=== PATIENT | female | born 1975 | race Caucasian/White ===

== ENCOUNTER 2022-11-18 10:22 | Outpatient (OUT) | payer BC, SELFPAY ==
--- NOTE | 2022-11-18 10:28 | US_ITS ---
[address] [address] Patient Name: XIMENA MENDEZ MRN: [id number] date: 1975 Sex: F Assigned Patient Location: US Current Patient Location: US Accession/Order Number: [id number] Exam Date: 11/18/2022 10:30 Report Date: 11/18/2022 13:04 At the request of: NON-STAFF PHYSICIAN Procedure: US pelvis transvaginal EXAMINATION: US pelvis transvaginal HISTORY: Fibroid uterus COMPARISON: Ultrasound pelvis 10/30/2020 TECHNIQUE: Transabdominal and/or transvaginal sonographic examination was performed as indicated by examination type. FINDINGS: UTERUS: Contains a 4.5 x 4.0 x 3.8 cm heterogeneous mass within the right anterior myometrium favoring a leiomyoma. A second heterogeneous mass is present within the right posterior myometrium, 3.4 x 3.1 x 3.0 cm, also favoring a leiomyoma. Uterus size: 10.1 x 7.7 x 7.5 cm ENDOMETRIUM: Slightly thickened, but homogeneous. Endometrial thickness: 16 mm RIGHT OVARY: Not seen. No suspicious adnexal findings. LEFT OVARY: Normal size and appearance. Duplex Doppler demonstrates normal waveform and flow; resistive index 0.5. Ovary size: 2.8 x 1.9 x 3.3 cm CUL-DE-SAC: Unremarkable. No significant free fluid. BLADDER: Unremarkable. OTHER: None. US/US pelvis transvaginal IMPRESSION: 1. Grossly stable prominent masses within right uterine myometrium favoring leiomyomas. 2. Mild thickening of the endometrium, but otherwise normal echogenicity. Correlate with patient's stage in her menstrual cycle. Electronically authenticated by: AYAN CHURCH Date: 11/18/2022 13:04
== END 2022-11-18 10:23 | disposition home or self-care (01) ==
PROVIDERS: PCP Family Medicine
DX: D25.9 Leiomyoma of uterus, unspecified (principal); R93.89 Abnormal findings on diagnostic imaging of other specified body structures
CPT/HCPCS: 76830

== ENCOUNTER 2023-01-13 10:10 | Outpatient (OUT) | payer BC, SELFPAY ==
--- NOTE | 2023-01-13 10:17 | MM_ITS ---
Patient: XIMENA MENDEZ Exam Date: 01/13/2023 : 1975 Gender:F Ordering : Non-Staff Physician Admission #: [id number] Family : DR Magy Grider M.D. Order #: [id number] CLICK HERE TO VIEW EXAM RADIOLOGY REPORT PROCEDURE: MM TOMOSYNTHESIS SCREENING BI COMPARISON: MG MAMM SCREEN 3D ARELIS CAD, 01/09/2022. MG MAMM SCREEN 3D ARELIS CAD, 11/24/2020. INDICATIONS: Screening Calculator Name NCI Breast Cancer Risk Assessment Tool 5 Year Breast Cancer Risk 0.60% Lifetime Breast Cancer Risk 6.80% Personal Breast Cancer No Personal Ovarian Cancer No Treatments None Family Cancers Mother with pancreatic cancer at age 66; Grandmother-maternal with colon cancer at age 79. LOCATION: [facility] BREAST COMPOSITION: Scattered areas fibroglandular density. FINDINGS: DIAGNOSTIC CATEGORY 2--BENIGN FINDING. NO CHANGE FROM COMPARISON. RIGHT BREAST: No significant suspicious finding. LEFT BREAST: No significant suspicious finding. RECOMMENDATIONS: ROUTINE MAMMOGRAM AND CLINICAL EVALUATION IN 12 MONTHS. PLEASE NOTE: A NORMAL MAMMOGRAM DOES NOT EXCLUDE THE POSSIBILITY OF BREAST CANCER. A CLINICALLY SUSPICIOUS PALPABLE LUMP SHOULD BE BIOPSIED. Dictated by: Ravindra Olmos MD on 01/13/2023 at 14:36 Approved by: Ravindra Olmos MD on 01/13/2023 at 14:37
== END 2023-01-13 10:11 | disposition home or self-care (01) ==
PROVIDERS: PCP Family Medicine
DX: Z12.31 Encounter for screening mammogram for malignant neoplasm of breast (principal); Z80.0 Family history of malignant neoplasm of digestive organs
CPT/HCPCS: 77063; 77067

== ENCOUNTER 2023-04-14 19:10 | Emergency (ER) | payer BC, SELFPAY ==
[2023-04-14 19:12] VITALS: BP 160/69; PULSE 92; RESP 18; TEMP 37.1; O2SAT 100
--- NOTE | 2023-04-14 19:29 | ED_ITS ---
HPI - Female Genitourinary General Chief complaint: Urogenital-Female Stated complaint: UTI Time Seen by Provider: 04/14/23 19:11 Source: patient Mode of arrival: walk-in Limitations: no limitations History of Present Illness HPI Narrative: Patient is a 47-year-old female with a history of type 1 diabetes who presents to the emergency department for dysuria and urinary urgency that began today. She states since being diagnosed with type 1 diabetes 2 years ago, she has had 3 UTIs. This was not an issue for her before diagnosis. She has had no fevers, chills, nausea, vomiting, flank or back pain. No medications taken prior to arrival. She is not concerned for . Blood sugars have been running mildly low today as she was at work all day but she states she ate schedules on the way into the ER with improvement. Related Data Home Medications Medication Instructions Recorded Confirmed galcanezumab-gnlm 120 mg/mL mg subcut 04/14/23 subcutaneous pen injector (Emgality Pen) insulin aspart U-100 100 unit/mL 04/14/23 subcutaneous solution (Novolog U-100 Insulin aspart) rosuvastatin 10 mg tablet mg 04/14/23 semaglutide 1 mg/dose (4 mg/3 mL) mg subcut 04/14/23 subcutaneous pen injector (Ozempic) Previous Rx's Medication Instructions Recorded ciprofloxacin HCl 500 mg tablet 500 mg PO BID #10 tabs 04/14/23 (Cipro) fluconazole 150 mg tablet 150 mg PO Q5D #2 tabs 04/14/23 ondansetron 4 mg disintegrating 4 mg PO Q6H PRN nausea and 04/14/23 tablet vomiting #12 tabs phenazopyridine 200 mg tablet 200 mg PO Q8H 2 days #6 tabs 04/14/23 (Pyridium) Allergies Allergy/AdvReac Type Severity Reaction Status Date / Time sulfamethoxazole Allergy Verified 04/14/23 19:16 [From Bactrim] trimethoprim [From Bactrim] Allergy Verified 04/14/23 19:16 Review of Systems ROS Constitutional Denies: fever or chills Ears, nose, mouth, and throat Denies: throat pain or nasal congestion Cardiovascular Denies: chest pain Respiratory Denies: shortness of breath Gastrointestinal Denies: abdominal pain, nausea or vomiting PFSH PFSH Social History Smoking status: Never smoker Exam Constitutional Vital Signs, click to edit/add: Last Vital Signs Temp 98.8 F 04/14/23 19:12 Pulse 92 H 04/14/23 19:12 Resp 18 04/14/23 19:12 BP 160/69 H 04/14/23 19:12 Pulse Ox 100 04/14/23 19:12 O2 Del Method Room Air 04/14/23 19:12 Course Vital Signs Vital signs: Vital Signs Temperature 98.8 F 04/14/23 19:12 Pulse Rate 92 H 04/14/23 19:12 Respiratory Rate 18 04/14/23 19:12 Blood Pressure 160/69 H 04/14/23 19:12 Pulse Oximetry 100 04/14/23 19:12 Oxygen Delivery Method Room Air 04/14/23 19:12 Temperature 98.8 F 04/14/23 19:12 Pulse Rate 92 H 04/14/23 19:12 Respiratory Rate 18 04/14/23 19:12 Blood Pressure 160/69 H 04/14/23 19:12 Pulse Oximetry 100 04/14/23 19:12 Oxygen Delivery Method Room Air 04/14/23 19:12 MDM - Female Genitourinary MDM Narrative Medical decision making narrative: Patient with evidence of mild UTI, she is a type I diabetic so she will be treated with Cipro, Pyridium for symptoms and Zofran as needed. Follow-up with PCP, increase fluids and return to the ER if symptoms change or worsen Medical Records Attestation: I reviewed the patient's medical records. Lab Data Attestation: I reviewed the patient's lab results. Labs: Lab Results 04/14/23 Range/Units 19:25 Urine Color Lt. yellow (YELLOW) Urine Clarity Clear (CLEAR) Urine pH 7.0 (5.0-9.0) Ur Specific [place] <=1.005 A (1.005-1.025) Urine Protein Negative (NEG/TRACE) mg/dL Urine Glucose (UA) Negative (NEGATIVE) mg/dL Urine Ketones Negative (NEGATIVE) mg/dL Urine Occult Blood Moderate A (NEGATIVE) Urine Nitrite Negative (NEGATIVE) Urine Bilirubin Negative (NEGATIVE) Urine Urobilinogen 0.2 (0.2-1.0) EU/dL Ur Leukocyte Esterase Moderate A (NEGATIVE) Urine RBC 0-2 (0-2) #/HPF Urine WBC 2-5 A (NONE SEEN) #/HPF Ur Squamous Epith Cells None seen (NONE/RARE) #/LPF Urine Crystals None seen (None Seen) #/HPF Urine Bacteria None seen (NONE SEEN) #/HPF Urine Casts None seen (NONE SEEN) #/LPF Urine Mucus None seen (NONE SEEN) Discharge Plan Discharge Chief Complaint: Urogenital-Female Clinical Impression: Urinary tract infection Patient Disposition: Home, Self-Care Time of Disposition Decision: 19:52 Condition: Good Prescriptions / Home Meds: New phenazopyridine [Pyridium] 200 mg tablet 200 mg PO Q8H 2 Days Qty: 6 0RF ciprofloxacin HCl [Cipro] 500 mg tablet 500 mg PO BID Qty: 10 0RF ondansetron 4 mg tablet,disintegrating 4 mg PO Q6H PRN (Reason: nausea and vomiting) Qty: 12 0RF fluconazole 150 mg tablet 150 mg PO Q5D Qty: 2 0RF Rx Instructions: 1 tab at the beginning and 1 tab at the end of the course of antibiotics No Action insulin aspart U-100 [Novolog U-100 Insulin aspart] 100 unit/mL solution rosuvastatin 10 mg tablet Emgality Pen 120 mg/mL pen injector SUBCUT Ozempic 1 mg/dose (4 mg/3 mL) pen injector SUBCUT Instructions: Urinary Tract Infection in Women (ED) Stand Alone Forms: Portal Instructions Referrals: Magy Grider MD [Primary Care Provider] - 1 week Discharge Date/Time: 04/14/23 20:03
[2023-04-14 19:38] LABS: Bilirubin Urine NEGATIVE (NEGATIVE); Blood Urine MODERATE (NEGATIVE); Clarity Urine CLEAR (CLEAR); Color Urine LT. YELLOW (YELLOW); Glucose Urine UA NEGATIVE (NEGATIVE); Ketones Urine NEGATIVE (NEGATIVE); Leukocyte Esterase Urine MODERATE (NEGATIVE); Nitrite Urine NEGATIVE (NEGATIVE); Protein Urine NEGATIVE (NEG/TRACE); Specific Gravity Urine <=1.005 (1.005-1.025); Urobilinogen Urine 0.2 EU/dL (0.2-1.0)
[2023-04-14 19:43] LABS: Urine Microscopic Indicated YES
[2023-04-14 19:47] LABS: Bacteria Urine NONE SEEN #/HPF (NONE SEEN); Cast Seen? NONE SEEN #/LPF (NONE SEEN); Crystals Seen? None Seen #/HPF (None Seen); Mucus Urine NONE SEEN (NONE SEEN); RBC Urine 0-2 #/HPF (0-2); Squamous Epithelial Cell Urine NONE SEEN #/LPF (NONE/RARE)
== END 2023-04-14 20:03 | disposition home or self-care (01) ==
PROVIDERS: Physician Assistant; Emergency Provider Emergency Medicine; PCP Family Medicine
DX: N39.0 Urinary tract infection, site not specified (principal); E10.9 Type 1 diabetes mellitus without complications; Z87.440 Personal history of urinary (tract) infections; Z79.899 Other long term (current) drug therapy; Z79.4 Long term (current) use of insulin
CPT/HCPCS: 81001; 99283

== ENCOUNTER 2024-02-05 10:22 | Outpatient (OUT) | payer BC, SELFPAY ==
--- NOTE | 2024-02-05 10:29 | MM_ITS ---
Patient Name: XIMENA MENDEZ MR#: [id number] : 1975 Exam Date: 02/05/2024 Ordering Doctor: DR Magy Grider M.D. RADIOLOGY REPORT PROCEDURE: MM TOMOSYNTHESIS SCREENING BI COMPARISON: MM TOMOSYNTHESIS SCREENING BI, 01/13/2023. MG MAMM SCREEN 3D ARELIS CAD, 01/09/2022. MG MAMM SCREEN 3D ARELIS CAD, 11/24/2020. MG MAMM SCREEN ARELIS W CAD, 11/05/2017. INDICATIONS: Screening Calculator Name NCI Breast Cancer Risk Assessment Tool 5 Year Breast Cancer Risk 0.70% Lifetime Breast Cancer Risk 6.70% Personal Breast Cancer No Personal Ovarian Cancer No Treatments None Family Cancers Mother with pancreatic cancer at age 66; Grandmother-maternal with colon cancer at age 79. LOCATION: [facility] BREAST COMPOSITION: There are scattered areas of fibroglandular density. FINDINGS: DIAGNOSTIC CATEGORY 2--BENIGN FINDING: RIGHT BREAST: No significant suspicious finding. LEFT BREAST: No significant suspicious finding. Stable stranding/scarring posterior upper-outer quadrant. No significant change has occurred. RECOMMENDATIONS: ROUTINE MAMMOGRAM AND CLINICAL EVALUATION IN 12 MONTHS. PLEASE NOTE: A NORMAL MAMMOGRAM DOES NOT EXCLUDE THE POSSIBILITY OF BREAST CANCER. A CLINICALLY SUSPICIOUS PALPABLE LUMP SHOULD BE BIOPSIED. Dictated by: Diego Marin M.D. on 02/06/2024 at 08:20 Approved by: Diego Marin M.D. on 02/06/2024 at 09:28
--- OUTSIDE RECORDS SUMMARY | 2024-02-05 10:35 | XMS_ITS | CCD ---
Author Organization [facility] Care Team Providers Care Gear Room Keeper Name Role Phone Lisa Talavera Unavailable Mapus, Tondra Unavailable Jose Lernern Unavailable RADHA, DR MARSHALL Admitting Unavailable RADHA, DR MARSHALL Attending Unavailable JOSE GUADALUPE, DR MAGY Schmitt Primary Care Unavailable RADHA, DR MARSHALL Consulting Unavailable CARMICHAELS, DR ROBBIN Tamez Consulting Unavailable Magy Shi Unavailable Delphine Garcia Unavailable MD Magy Shi Primary Care Provider Mapus, DRAWER IN HAND Tondra K Attending Provider VIDAL Garcia-Ely Akers Attending Provider Mapus, DRAWER IN HAND Tondra K Attending Provider MD Magy Shi Primary Care Provider Mapus, DRAWER IN HAND Tondra K Attending Provider MD Magy Shi Primary Care Provider Mapus, Tondra K Admitting Unavailable Mapus, Tondra K Attending Unavailable Magy Shi Primary Care Unavailable Radha Delphine Admitting Unavailable Delphine Garcia Attending Unavailable Magy Shi Primary Care Unavailable Ravi Sher Admitting Unavailab le Ravi Sher Attending Unavailab le Magy Shi Primary Care Unavailable Mapus, Tondra K Admitting Unavailable Mapus, Tondra K Attending Unavailable Magy Shi Primary Care Unavailable Mapus, DRAWER IN HAND Tondra K Attending Provider MD Magy Shi Primary Care Provider CALIN LOPEZ Attending Unavailable KATIE ROBLEDO Referring Unavailable MAGY SHI Primary Care Unavailable Allergies Allergy Classification Reported Allergen(s) Allergy Type Date of Onset Reaction(s) Facility (20 sources) Sulfamethoxazole / Trimethoprim Drug Allergy Unknown [facility] [employer] Other (1 source) Sulfamethoxazole / Trimethoprim Drug Allergy [facility] Repository (5 sources) Allergies Reconciled Propensity to adverse reactions [facility] [employer] Other (5 sources) Sulfamethoxazole; Translations: [sulfamethoxazole] Drug Allergy 03-17-20 Unknown Reaction [facility] (5 sources) Trimethoprim; Translations: [trimethoprim] Drug Allergy 03-17-20 Unknown Reaction [facility] (1 source) Sulfamethoxazole / Trimethoprim; Translations: [SULFAMETHOXAZOLE-T RIMETHOPRIM] Drug Allergy 01-27-20 [facility] Repository Medications Current Medications Medication Drug Class(es) Dates Sig (Normalized) Sig (Original) 3 ML semaglutide 1.34 MG/ML Pen Injector [Ozempic] (17 sources) Start: 01-24-2023 inject 1 mg by subcutaneous injection every week, then inject 2 mg by subcutaneous injection once Ozempic (1 MG/DOSE) 4 MG/3ML as directed Subcutaneous Once weekly for [address] Please dispense in place of Ozempic 2mg shortage. Pt may resume Ozempic 2mg once available Dec, Active Start: 11-01-2021 inject 1 mg by subcu taneous injection every week Ozempic (1 MG/DOSE) 4 MG/3ML 1mg Subcutaneous once weekly for 90 day(s) Oct, Active inject 1 mg by subcu taneous injection every week inject 1 mg by subcu taneous injection every week Ozempic (1 MG/DOSE) 4 MG/3ML 1mg Subcutaneous once weekly for 90 day(s) Active 3 ML semaglutide 2.68 MG/ML Pen Injector [Ozempic] (6 sources) inject 2 mg by subcu taneous injection every week Ozempic (2 MG/DOSE) 8 MG/3ML 2mg Subcutaneous once weekly for 84 days Active inject 2 mg by subcutaneous inje ction every week blood-glucose sensor (Dexcom G7 Sensor) (3 sources) Start: 06-25-2023 blood-glucose sensor (Dexcom G7 Sensor) Active .Route June 24, 2023 11:00pm Start: 06-25-2023 blood-glucose sensor (Dexcom G7 Sensor) Active .Route June 25, 2023 12:00am Start: 06-25-2023 blood-glucose sensor (Dexcom G7 Sensor) Active .ROUTE June 25, 2023 12:00am 12 hr buPROPion hydrochloride 100 mg extended release oral tablet (6 sources) Aminoketone take 2 tablets by mouth in the morning, then take 1 tablet by mouth in the evening buPROPion HCl ER (SR) 100 MG 2 tabs am and 1 pm Orally twice for 30 days Active buPROPion HCl ER (SR) 100 MG 1 tablet twice daily Orally twice for 30 day(s) Active ciprofloxacin 500 mg oral tablet (1 source) Quinolone Antimicrobial Start: 06-26-2022 take 1 tablet by mouth every twelve hours Cipro 500 MG 1 tablet Orally every 12 hrs for 5 day(s) May, Active Dexcom 7 (2 sources) Start: 03-17-2023 Dexcom 7 as directed sq change every 10 days for 90 days pt has tandem control iq insulin pump must have updated dexcom g7 sensors with white line on green side of box Feb, Active Dexcom G6 Sensor - (20 sources) Start: 12-27-2020 Dexcom G6 Sensor - as directed SQ change q 10 days for 90 day(s) Nov, Active Dexcom G6 Sensor - USE DIRECTED AND CHANGE EVERY 10 DAYS for 90 Active Dexcom G6 Sensor - as directed SQ change q 10 days for 90 day(s) Active Dexcom G6 Transmitter - (20 sources) Start: 12-27-2020 Dexcom G6 Arzola smitter - as directed SQ change Q 3 MO for 90 day(s) Nov, Active Dexcom G6 Transm itter - as directed SQ change Q 3 MO for 90 day(s) Active 1 ml erenumab-aooe 70 mg/ml auto-injector (13 sources) inject 70 mg by subcutaneous injection every month Aimovig 70 MG/ML as directed Subcutaneous monthly Active fluconazole 150 mg oral tablet (1 source) Azole Antifungal Start: 06-27-19 Diflucan 150 MG 1 tablet Orally once for 2 days Take 1 tablet at the onset of symptoms of a vaginal yeast infection, take the second tablet in 3 days. May, Active 1.5 ml fremanezumab-vfrm 150 mg/ml prefilled syringe (18 sources) inject 1.5 mL by subcutaneous injection every month Ajovy 225 MG/1.5ML 1.5 ml Subcutaneous once monthly migraines Active Ajovy 225 MG/1.5 ML 1.5 ml Subcutaneous Active 1 ml galcanezumab-gnlm 120 mg/ml auto-injector (12 sources) Start: 06-25-2023 inject 120 mg by subcutaneous injection every month Galcanezumab-Gnlm (Emgality Pen) 120 mg/mL pen injector Active 120 MG SUBCUT every month June 24, 2023 11:00pm Emgality 120 MG/ ML as directed Subcutaneous Active 0.2 ml glucagon 5 mg/ml auto-injector (5 sources) Antihypoglycemic Agent Start: 06-25-2023 Glucago n (Gvoke Hypopen 1-Pack) 1 mg/0.2 mL auto-injector Active 1 MG SUBCUT June 24, 2023 11:00pm Start: 03-17-2023 Gvoke HypoPen 2-Pack 1 MG/0.2ML as directed Subcutaneous prn hypoglycemia may repeat in 15 minutes for 1 days Feb, Active Insulin Aspart U-100 (Novolog U-100 Insulin Aspart) 100 unit/mL solution (3 sources) Start: 06-25-2023 inject 80 [IU] by subcutaneous injection once daily Insulin Aspart U-100 (Novolog U-100 Insulin Aspart) 100 unit/mL solution Active 0 CNTSUBQINF .COMPLEX June 24, 2023 11:00pm INJECT 80 UNITS SUBCUTANEOUSLY DAILY VIA INSULIN PUMP; Start: 06-25-2023 inject 80 [IU] by gresham bcutaneous injection once daily Insulin Aspart U-100 (Novolog U-100 Insulin Aspart) 100 unit/mL solution Active 0 CNTSUBQINF .COMPLEX June 25, 2023 12:00am INJECT 80 UNITS SUBCUTANEOUSLY DAILY VIA INSULIN PUMP; insulin aspart, human 100 unt/ml injectable solution (20 sources) Insulin Analog Start: 02-27-2021 inject 80 [IU] by subcutaneous injection once daily NovoLOG 100 UNIT/ML 80 units via insulin pump Subcutaneous daily for 90 days Jan, Active Start: 01-29-2021 inject 60 [IU] by gresham bcutaneous injection once daily Fiasp 100 UNIT/ML 60 units/day insulin pump Subcutaneous qd for 90 day(s) Jan, Not-Taking Start: 12-27-2020 Fiasp FlexTouc h 100 UNIT/ML ICR 1:15 ac tid. corrective scale 1:50 ac tid; hs if >200 half dose Subcutaneous qid (expect up to 30 units/day) Nov, Active inject 80 [IU] by gresham bcutaneous injection once daily NovoLOG 100 UNIT/ML INJECT 80 UNITS SUBCUTANEOUSLY DAILY VIA INSULIN PUMP for 90 Active Insulin Aspart A ctive 3 ml insulin degludec 100 unt/ml pen injector (20 sources) Insulin Analog Start: 12-18-2020 inject 16 [IU] by subcutaneous injection once daily in the morning Tresiba FlexTouch 100 UNIT/ML 16 units Subcutaneous qam for 90 day(s) (titrate up to 30 units/day Nov, Active inject 21 [IU] by gresham bcutaneous injection once daily in the morning Tresiba FlexTouch 100 UNIT/ML 21 units Subcutaneous qam (titrate up to 30 units/day PRN if insulin pump fails Active Insulin Degludec (Tresiba Flextouch U-100) 100 unit/mL (3 mL) insulin pen (5 sources) Start: 10-29-2023 inject 19 [IU] by subcutaneous injection once daily in the morning Insulin Degludec (Tresiba Flextouch U-100) 100 unit/mL (3 mL) insulin pen Active 0 SUBCUT .COMPLEX October 29, 2023 10:27am If off insulin pump. 19 units Subcutaneous qam. Must wait 24 hours after last dose before restarting insulin pump. Start: 10-29-2023 inject 19 [IU] by gresham bcutaneous injection once daily in the morning Insulin Degludec (Tresiba Flextouch U-100) 100 unit/mL (3 mL) insulin pen Active 0 SUBCUT .COMPLEX October 29, 2023 11:27am If off insulin pump. 19 units Subcutaneous qam. Must wait 24 hours after last dose before restarting insulin pump. Start: 06-25-2023 End: 10-29-2023 Insulin Degludec (Tresiba Flextouch U-100) 100 unit/mL (3 mL) insulin pen Discontinued 0 SUBCUT .COMPLEX June 24, 2023 11:00pm October 29, 2023 10:29am 21 units Subcutaneous qam;(titrate up to 30 units/day PRN if insulin pump fails; Start: 06-25-2023 End: 10-29-2023 Insulin Degludec (Tresiba Flextouch U-100) 100 unit/mL (3 mL) insulin pen Discontinued 0 SUBCUT .COMPLEX June 25, 2023 12:00am October 29, 2023 11:29am 21 units Subcutaneous qam;(titrate up to 30 units/day PRN if insulin pump fails; Start: 06-25-2023 Insulin Deglud ec (Tresiba Flextouch U-100) 100 unit/mL (3 mL) insulin pen Active 0 SUBCUT .COMPLEX June 25, 2023 12:00am 21 units Subcutaneous qam;(titrate up to 30 units/day PRN if insulin pump fails; Keto-Diastix - (20 sources) Start: 11-14-2021 Keto-Diastix - as directed In Vitro prn glucose >300 for 30 day(s) Oct, Active Keto-Diastix - a s directed In Vitro prn glucose >300 for 30 days Active Keto-Diastix - a s directed In Vitro prn glucose >300 for 30 day(s) Active metFORMIN hydrochloride 500 mg oral tablet (20 sources) Biguanide take 1 tablet by mouth every twelve hours metFORMIN HCl 500 MG 1 tablet with a meal Orally bid for 90 days Active ozempic (1 mg/dose) 4 mg/3ml solution pen-injector (1 source) Start: 01-24-2023 inject 1 mg by subcutaneous injection every week, then inject 2 mg by subcutaneous injection once Ozempic (1 MG/DOSE) 4 MG/3ML as directed Subcutaneous Once weekly for 84 days Please dispense in place of Ozempic 2mg shortage. Pt may resume Ozempic 2mg once available Dec, Active ozempic (2 mg/dose) 8 mg/3ml solution pen-injector (5 sources) inject 2 mg by subcutaneous injection every week Ozempic (2 MG/DOSE) 8 MG/3ML 2mg Subcutaneous once weekly Active inject 2 mg by subcu taneous injection every week Ozempic (2 MG/DOSE) 8 MG/3ML 2mg Subcutaneous once weekly for 84 days Active pen needle, diabetic (BD Ultra-Fine Anabel Pen Needle) (3 sources) Start: 06-25-2023 pen needle, di abetic (BD Ultra-Fine Anabel Pen Needle) Active .Route June 24, 2023 11:00pm Start: 06-25-2023 pen needle, di abetic (BD Ultra-Fine Anabel Pen Needle) Active .Route June 25, 2023 12:00am Start: 06-25-2023 pen needle, di abetic (BD Ultra-Fine Anabel Pen Needle) Active .ROUTE June 25, 2023 12:00am phenazopyridine hydrochloride 200 mg oral tablet (1 source) Start: 06-26-2022 take 1 tablet by mouth every eight hours Pyridium 200 MG 1 tablet after meals Orally Three times a day for 2 day(s) May, Active rosuvastatin calcium 10 mg oral tablet (20 sources) HMG-CoA Reductase Inhibitor Start: 01-12-2024 Rosuvastatin Active 0 .ROUTE .COMPLEX 90 January 12, 2024 6:25am TAKE 1 TABLET ONCE DAILY Start: 06-25-2023 End: 01-12-2024 take 10 mg by mouth once daily Rosuvastatin Discontinu ed 10 MG PO Daily June 24, 2023 11:00pm January 12, 2024 6:25am Rosuvastatin Ernie cium 10 MG TAKE 1 TABLET ONCE DAILY for 90 Active 0.25 mg, 0.5 mg dose 1.5 ml semaglutide 1.34 mg/ml pen injector (20 sources) Start: 07-31-2021 Ozempic (0.25 or 0.5 MG/DOSE) 2 MG/1.5ML 0.5 mg Subcutaneous weekly for 90 days Dose as of 07/31/2021 is 0.25 mg subcu weekly July, Active Start: 06-28-2021 Ozempic (0.25 or 0.5 MG/DOSE) 2 MG/1.5ML 0.5 mg Subcutaneous weekly for 90 days May, Not-Taking Ozempic (0.25 or 0.5 MG/DOSE) 2 MG/1.5ML 1 mg Subcutaneous weekly for 90 days Not-Taking Semaglutide (Ozempic) 2 mg/dose (8 mg/3 mL) pen injector (6 sources) Start: 12-09-2023 Semaglutide (O zempic) 2 mg/dose (8 mg/3 mL) pen injector Active 0 .ROUTE .COMPLEX December 09, 2023 6:14am INJECT 2MG SUBCUTANEOUSLY WEEKLY (EVERY 7 DAYS) Start: 09-23-2023 End: 12-09-2023 Semaglutide (Ozempic) 2 mg/d ose (8 mg/3 mL) pen injector Discontinued 0 .ROUTE .COMPLEX September 23, 2023 5:57am December 09, 2023 6:14am INJECT 2MG SUBCUTANEOUSLY WEEKLY (EVERY 7 DAYS) Start: 09-23-2023 Semaglutide (O zempic) 2 mg/dose (8 mg/3 mL) pen injector Active 0 .ROUTE .COMPLEX September 23, 2023 6:57am INJECT 2MG SUBCUTANEOUSLY WEEKLY (EVERY 7 DAYS) Start: 06-25-2023 End: 09-23-2023 inject 2 mg by subcutaneous injection every week Semaglutide (Ozempic) 2 mg/dose (8 mg/3 mL) pen injector Discontinued 2 MG SUBCUT Once a week June 24, 2023 11:00pm September 23, 2023 5:57am Start: 06-25-2023 End: 09-23-2023 inject 2 mg by subcutaneous injection every week Semaglutide (Ozempic) 2 mg/dose (8 mg/3 mL) pen injector Discontinued 2 MG SUBCUT Once a week June 25, 2023 12:00am September 23, 2023 6:57am Start: 06-25-2023 inject 2 mg by subcu taneous injection every week Semaglutide (Ozempic) 2 mg/dose (8 mg/3 mL) pen injector Active 2 MG SUBCUT Once a week June 25, 2023 12:00am urine glucose-ketones test (Keto-Diastix) (3 sources) Start: 06-25-2023 urine glucose- ketones test (Keto-Diastix) Active .Route June 24, 2023 11:00pm Start: 06-25-2023 urine glucose- ketones test (Keto-Diastix) Active .Route June 25, 2023 12:00am Start: 06-25-2023 urine glucose- ketones test (Keto-Diastix) Active .ROUTE June 25, 2023 12:00am Completed/Discontinued Medications Medication Drug Class(es) Dates Sig (Normalized) Sig (Original) Accu-Chek Sandra Plus - (20 sources) Accu-Chek Sandra Plus - as directed In Vitro Not-Taking Accu-Chek Sandra Plus - as directed In Vitro Active Accu-Chek Sandra Plus w/Devic e (20 sources) Accu-Chek Sandra Plus w/Device as directed Not-Taking Accu-Chek Sandra Plus w/Device as directed Active cephalexin 750 mg oral capsule (13 sources) Cephalosporin Antibacterial Cephalexin 750 MG as directed Orally Not-Taking drospirenone / Ethinyl Estradiol (13 sources) Progestin, Estrogen Calli 28 No t-Taking Ketorolac (20 sources) Nonsteroidal Anti-inflammatory Drug, Cyclooxygenase Inhibitor Start: 04-16-2017 Toradol per 15 mg Mar, 30 mg Start: 08-14-2015 Toradol per 15 mg July, 60 mg methylPREDNISolone (20 sources) Corticosteroid Start: 03-26-2014 Depo-Medrol 40 mg Feb, 60 mg terconazole 4 mg/ml vaginal cream (13 sources) Azole Antifungal Terconazole 0.4 % 1 applicatorful at bedtime Vaginal Once a day Not-Taking Triamcinolone (20 sources) Corticosteroid Start: 04-16-2017 KENALOG - 10 m g Mar, 40 mg Problems Active Problems Problem Classification Problem Date Documented Da te Episodic/Chronic Acute bronchitis (5 sources) Acute bronchitis; Translations: [Acute bronchitis, unspecified] Episodic Adjustment disorders (5 sources) Adjustment disorder with depressed mood; Translations: [Adjustment disorder with depressed mood] Chronic Administrative/social admission (14 sources) Dietary counseling and surveillance; Translations: [Patient encounter status] Onset: 12-27-2020 Resolved: 11-14-2021 Episodic Benign neoplasm of uterus (5 sources) Uterine leiomyoma; Translations: [Leiomyoma of uterus, unspecified] Episodic Chronic obstructive pulmonary disease and bronchiectasis (5 sources) Bronchitis; Translations: [Bronchitis, not specified as acute or chronic] Episodic Diabetes mellitus with complications (20 sources) Hyperglycemia due to type 2 diabetes mellitus; Translations: [Type 2 diabetes mellitus with hyperglycemia] Onset: 04-30-2023 Chronic Diabetes mellitus without complication (20 sources) Type 1 diabetes mellitus; Translations: [Type 1 diabetes mellitus without complications] Onset: 12-27-2020 Resolved: 11-28-2021 Chronic Diabetes mellitus without complication (15 sources) Insulin pump present; Translations: [Presence of insulin pump (external) (internal)] Episodic Disorders of lipid metabolism (20 sources) Hyperlipidemia; Translations: [Hyperlipidemia, unspecified] Onset: 12-27-2020 Resolved: 11-28-2021 Chronic Essential hypertension (20 sources) Essential hypertension; Translations: [Essential (primary) hypertension] Onset: 06-28-2021 Resolved: 11-28-2021 Chronic Headache; including migraine (5 sources) Menstrual migraine; Translations: [Menstrual migraine, not intractable, without status migrainosus] Chronic Immunizations and screening for infectious disease (7 sources) Encounter for immunization; Translations: [Sexually transmitted infectious disease] Onset: 01-29-2021 Resolved: 05-07-2021 Episodic Inflammatory diseases of female pelvic organs (5 sources) Acute vaginitis; Translations: [Acute vaginitis] Episodic Mood disorders (14 sources) Major depressive disorder, single episode, unspecified; Translations: [Depression] Chronic Mycoses (5 sources) Candidiasis; Translations: [Candidiasis, unspecified] Episodic Nutritional deficiencies (20 sources) Vitamin D deficiency; Translations: [Vitamin D deficiency, unspecified] Chronic Nutritional deficiencies (6 sources) Deficiency of other specified B group vitamins; Translations: [Vitamin B 12 deficiency E53.8] Onset: 12-27-2020 Resolved: 11-14-2021 Episodic Other aftercare (20 sources) Long-term current use of insulin; 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] 06-24-2023 Episodic Other aftercare (19 sources) 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; Translations: [Long-term (current) use of insulin] Onset: 12-27-2020 Resolved: 11-28-2021 Episodic Other endocrine disorders (5 sources) Hypoglycemia; Translations: [Hypoglycemia, unspecified] 06-24-2023 Chronic Other endocrine disorders (4 sources) Hypoglycemia, unspecified; Translations: [Hypoglycemia, unspecified] Chronic Other female genital disorders (5 sources) Hypertrophy of uterus; Translations: [Hypertrophy of uterus] Episodic Other female genital disorders (5 sources) Noninflammatory disorder of the vagina; Translations: [Other specified noninflammatory disorders of vagina] Episodic Other infections; including parasitic (1 source) Personal history of other infectious and parasitic diseases Episodic Other non-traumatic joint disorders (5 sources) Other specified joint disorders, right ankle and foot; Translations: [Other specified joint disorders, right ankle and foot] Episodic Other non-traumatic joint disorders (5 sources) Arthralgia of the ankle and/or foot; Translations: [Pain in right ankle and joints of right foot] Episodic Other nutritional; endocrine; and metabolic disorders (20 sources) Body mass index 30+ - obesity; Translations: [Body mass index (BMI) 30.0-30.9, adult] Chronic Other nutritional; endocrine; and metabolic disorders (20 sources) Obesity; Translations: [Obesity, unspecified] Chronic Other nutritional; endocrine; and metabolic disorders (20 sources) Obese class I; Translations: [Body mass index (BMI) 31.0-31.9, adult] Chronic Other nutritional; endocrine; and metabolic disorders (10 sources) Obesity, unspecified Onset: 06-28-2021 Resolved: 11-28-2021 Chronic Other nutritional; endocrine; and metabolic disorders (1 source) Body mass index (BMI) 31.0-31.9, adult Onset: 05-07-2021 Resolved: 05-07-2021 Chronic Other nutritional; endocrine; and metabolic disorders (4 sources) Body mass index (BMI) 30.0-30.9, adult Onset: 08-14-2021 Resolved: 11-14-2021 Chronic Other nutritional; endocrine; and metabolic disorders (3 sources) Body mass index (BMI) 29.0-29.9, adult; Translations: [BMI 29.0-29.9,adult Z68.29] Onset: 12-27-2020 Resolved: 01-29-2021 Episodic Other nutritional; endocrine; and metabolic disorders (6 sources) H/O: diabetes mellitus; Translations: [Personal history of other endocrine, nutritional and metabolic disease] Episodic Other nutritional; endocrine; and metabolic disorders (1 source) Personal history of other endocrine, nutritional and metabolic disease Episodic Other nutritional; endocrine; and metabolic disorders (1 source) Body mass index (BMI) 28.0-28.9, adult Episodic Other nutritional; endocrine; and metabolic disorders (4 sources) Overweight in adulthood with body mass index of 25 or more but less than 30; Translations: [Body mass index (BMI) 29.0-29.9, adult] 10-29-2023 Episodic Other nutritional; endocrine; and metabolic disorders (2 sources) Body mass index (BMI) 27.0-27.9, adult; Translations: [Body Mass Index 27.0-27.9, adult] 10-29-2023 Episodic Other upper respiratory infections (5 sources) Chronic sinusitis; Translations: [Chronic sinusitis, unspecified] Chronic Phlebitis; thrombophlebitis and thromboembolism (5 sources) Thromboembolism of vein; Translations: [Acute embolism and thrombosis of unspecified deep veins of left lower extremity] Episodic Poisoning by other medications and drugs (20 sources) Allergic reaction to drug; Translations: [Allergic reaction caused by a drug] Episodic Sprains and strains (5 sources) Late effect of sprain AND/OR strain without tendon injury; Translations: [Strain of muscle(s) and tendon(s) of peroneal muscle group at lower leg level, right leg, sequela] Episodic Unclassified (1 source) Dietary counseling and surveillance; Translations: [Dietary counseling and surveillance] Onset: 05-30-2022 Urinary tract infections (1 source) Urinary tract infection, site not specified Episodic Viral infection (5 sources) Papillomavirus as the cause of diseases classified elsewhere; Translations: [Human papillomavirus] Episodic Past or Other Problems Problem Classification Problem Date Documented Date Episodic/Chronic Contraceptive and procreative management (5 sources) Sterilization procedure; Translations: [Encounter for sterilization] Resolved: 08-21-2020 Episodic Genitourinary symptoms and ill-defined conditions (7 sources) Dysuria; Translations: [Genitourinary symptoms] Onset: 06-26-2022 Resolved: 08-21-2020 Episodic Other aftercare (5 sources) History and physical examination, follow-up; Translations: [Encounter for follow-up examination after completed treatment for conditions other than malignant neoplasm] Resolved: 02-16-2020 Episodic Other non-traumatic joint disorders (5 sources) Instability of joint of right ankle; Translations: [Other instability, right ankle] Resolved: 08-21-2020 Episodic Other skin disorders (5 sources) Localized swelling, mass and lump, left lower limb; Translations: [Localized swelling, mass and lump, left lower limb] Resolved: 08-21-2020 Episodic Unclassified (5 sources) Acute candidiasis of vulva and vagina; Translations: [Acute candidiasis of vulva and vagina] Resolved: 10-12-2020 Results Test Name Value Interpretation Reference Range Facility COMPREHENSIVE METABOLIC PANE [facility] 01-26-2024 Albumin [Mass/Vol] 4.0 g/dL Normal 3.2-5.3 [facility] Comment on above: Performed By: #### Ely SALCEDO, 42949-9, TSHR #### [facility] ([id number]) [address], [address] [place] [address] ALP [Catalytic activity/Vol] 66 U/L Normal 39-130 [facility] Comment on above: Performed By: #### Ely SALCEDO, 28572-8, TSHR #### [facility] ([id number]) [address], [address] [place] [address] ALT [Catalytic activity/Vol] 39 U/L High 0-31 [facility] Comment on above: Performed By: #### Ely SALCEDO, 72935-0, TSHR #### [facility] ([id number]) [address], [address] [place] [address] Anion gap [Moles/Vol] 7 mmol/L Normal 5-15 [facility] Comment on above: Performed By: #### Ely SALCEDO, 43847-1, TSHR #### [facility] ([id number]) [address], [address] [place] [address] AST [Catalytic activity/Vol] 30 U/L Normal 0-41 [facility] Comment on above: Performed By: #### Ely SALCEDO, 37074-8, TSHR #### [facility] ([id number]) [address], [address] [place] [address] Bilirubin [Mass/Vol] 0.8 mg/dL Normal 0.3-1.2 [facility] Comment on above: Performed By: #### Ely SALCEDO, 03829-1, TSHR #### [facility] ([id number]) [address], [address] [place] [address] Calcium [Mass/Vol] 8.9 mg/dL Normal 8.5-10.5 [facility] Comment on above: Performed By: #### Ely SALCEDO, 32093-2, TSHR #### [facility] ([id number]) [address], [address] [place] [address] Chloride [Moles/Vol] 108 mmol/L Normal 98-109 [facility] Comment on above: Performed By: #### Ely SALCEDO, 11675-9, TSHR #### [facility] ([id number]) [address], [address] [place] [address] CO2 [Moles/Vol] 24 mmol/L Normal 22-32 [facility] Comment on above: Performed By: #### Ely SALCEDO, 91146-7, TSHR #### [facility] ([id number]) [address], [address] [place] [address] Creatinine [Mass/Vol] 0.73 mg/dL Normal 0.40-1.00 [facility] Comment on above: Result Comment: METH OD TRACEABLE TO IDMS STANDARD Performed By: #### Ely SALCEDO, 01470-2, TSHR #### [facility] ([id number]) [address], [address] [place] [address] eGFR (CKD-EPI) NON-RACE DEPENDENT >90 Normal >59 [facility] Comment on above: Result Comment: Reported eGFR is based on the CKD-EPI 2020 equation that does not use a race coefficient. Performed By: #### Ely SALCEDO, 10651-6, TSHR #### [facility] ([id number]) [address], [address] [place] [address] Glucose [Mass/Vol] 110 mg/dL High 65-99 [facility] Comment on above: Performed By: #### Ely SALCEDO, 67966-8, TSHR #### [facility] ([id number]) [address], [address] [place] [address] Potassium [Moles/Vol] 4.3 mmol/L Normal 3.5-5.0 [facility] Comment on above: Performed By: #### Ely SALCEDO 51729-4, TSHR #### [facility] ([id number]) [address], [address] [place] [address] Protein [Mass/Vol] 5.9 g/dL Low 6.0-8.0 [facility] Comment on above: Performed By: #### Ely SALCEDO 43920-3, TSHR #### [facility] ([id number]) [address], [address] [place] [address] Sodium [Moles/Vol] 139 mmol/L Normal 134-146 [facility] Comment on above: Performed By: #### Ely SALCEDO 18597-0, TSHR #### [facility] ([id number]) [address], [address] [place] [address] Urea nitrogen [Mass/Vol] 15 mg/dL Normal 5-23 [facility] Comment on above: Performed By: #### Ely SALCEDO 97094-0, TSHR #### [facility] ([id number]) [address], [address] [place] [address] Lipid 1996 panelon 4 Cholesterol [Mass/Vol] 147 mg/dL Low 150-200 [facility] Comment on above: Performed By: #### Ely SALCEDO, 96166-1, TSHR #### [facility] ([id number]) [address], [address] [place] [address] Cholesterol in HDL [Mass/Vol] 72 mg/dL Normal >39 [facility] Comment on above: Result Comment: HDL <40 mg/dL - High Risk HDL > or = 40mg/dL- Desirable HDL >60 mg/dL - Negative Risk Performed By: #### Ely SALCEDO, 32754-1, TSHR #### [facility] ([id number]) [address], [facility] [address] [place] [address] Cholesterol in LDL [Mass/Vol] 68 mg/dL Normal <130 [facility] Comment on above: Result Comment: LDL <100 mg/dL - Desirable LDL >160 mg/dL - High Risk Performed By: #### Ely SALCEDO, 71754-5, TSHR #### [facility] ([id number]) [address], [address] [place] [address] Cholesterol in VLDL [Mass/Vol] 7 mg/dL Normal 0-30 [facility] Comment on above: Performed By: #### Ely SALCEDO, 63734-7, TSHR #### [facility] ([id number]) [address], [facility] [address] [place] [address] CHOLESTEROL:HDL 2.0 Normal 1.0-5.0 [facility] Comment on above: Performed By: #### Ely SALCEDO, 34174-9, TSHR #### [facility] ([id number]) [address] [address] [place] [address] Triglyceride [Mass/Vol] 35 mg/dL Normal 27-150 [facility] Comment on above: Performed By: #### Ely SALCEDO, 06911-2, TSHR #### [facility] ([id number]) [address] [address] [place] [address] MICROALBUMIN - ALBUMIN:CREAT ININE URINE RATIOon 01-26-2024 ALB/CREAT RATIO NOT CALCULATED Normal 0.0-30.0 [facility] Comment on above: Result Comment: Result for Albumin/Creatinine Ratio cannot be reliably calculated because urine albumin and or urine creatinine is below the detection limit of the assay. Performed By: #### M ALBU #### [facility] ([id number]) [address], [address] [address] Albumin DL <= 20 mg/L (U) [Mass/Vol] mg/dL Normal 0.0-1.9 [facility] Comment on above: Performed By: #### M ALBU #### [facility] ([id number]) [address], [address] [address] URINE CREAT 23.83 mg/dL Normal [facility] Comment on above: Performed By: #### M ALBU #### [facility] ([id number]) [address], [address] [address] TSH WITH REFLEXon 01-26-2024 TSH 0.65 uIU/mL Normal 0.49-4.67 [facility] Comment on above: Performed By: #### [place], [address]-1, TSHR #### [facility] ([id number]) [address], [address] [address] A1C HEMOGLOBINon 03-17-2023 HbA1c (Bld) [Mass fraction] 7.2 % [facility] Other Glucose - FINGER STICKon Glucose [Mass/Vol] 134 mg/dL [facility] Other HbA1c (Bld) [Mass fraction]o n 03-17-2023 A1C HEMOGLOBIN [facility] Other A1C HEMOGLOBINon 12-17-2022 HbA1c (Bld) [Mass fraction] 6.4 % [facility] Other Glucose - FINGER STICKon Glucose [Mass/Vol] 187 mg/dL [facility] Other HbA1c (Bld) [Mass fraction]o n 12-17-2022 A1C HEMOGLOBIN [facility] Other Urinalysis - AUTOMATEDon Appearance (U) clear [facility] Other Bilirubin Ql (U) Negative [facility] Other Color (U) yellow [facility] Other Glucose Ql (U) Negative [facility] Other Hemoglobin Ql (U) trace-intact [facility] Other Ketones Ql (U) Negative [facility] Other Leukocyte esterase Test strip Ql (U) large [facility] Other Nitrite Ql (U) Negative [facility] Other pH (U) 7.0 [pH] [facility] Other Protein Ql (U) Negative [facility] Other Specific gravity (U) [Rel density] 1.010 [facility] Other Urobilinogen (U) [Mass/Vol] 0.2 mg/dL [facility] Other Urinalysis - AUTOMATED [facility] Other Urine Cultureon 06-26-2022 Bacteria identified Cx Nom (U) Reason for Exam Dysuria Urine ORGANISM: Escherichia coli (O:ESCCOL) [place] Count 15,000 Aerobic JANEE Charge ([id number]) SUSCEPTIBILITY ORGANISM: O:ESCCOL ANTIBIOTIC INTERPRETATION JANEE Amikacin S <16 Amoxacillin/K Clavulanate S <8 Ampicillin S <8 Ampicillin/Sulbactam S <4 Aztreonam S <4 Cefazolin S <2 Cefepime S <2 Ceftazidime S <1 Ceftazidime/Avibactam S <4 Ceftolozane/Tazobactam S <2 Ceftriaxone S <1 Cefuroxime S <4 Ciprofloxacin S <0.25 Ertapenem S <0.5 Gentamicin S <2 Levofloxacin S <0.5 Meropenem S <1 Meropenem/Vaborbactam S <2 Nitrofurantoin S <32 Piperacillin/Tazobactam S <8 Tetracycline R >8 Tigecycline S <2 Tobramycin S <2 Trimethoprim/Sulfamethoxazo le R >2 S = SUSCEPTIBLE I = INTERMEDIATE R = RESISTANT BLANK = DATA NOT AVAILABLE, OR DRUG NOT ADVISABLE OR TESTED R* = RESISTANCE DUE TO EXTENDED SPECTRUM BETA-LACTAMASES ESBL = EXTENDED SPECTRUM BETA-LACTAMASE TFG = THYMIDINE-DEPENDENT STRAIN FIOR = BETA-LACTAMASE POSITIVE IB = INDUCIBLE BETA-LACTAMASE. APPEARS IN PLACE OF 'S' WITH SPECIES KNOWN TO POSSESS INDUCIBLE BETA-LACTAMASES. POTENTIALLY THEY MAY BECOME RESISTANT TO ALL B-LACTAM DRUGS. PERFORMED BY: [place] [address] PATHOLOGIST BRADLEY LINEBACKER CREWMEMBER LEANNE CHAN M.D. [facility] Comment on above: Performed By: #### C UU #### [facility] [address] [place] [address] Urine Culture 15,000 [facility] Other Urine Culture <16 Susceptible [facility] Other Urine Culture <8/4 Susceptible [facility] Other Urine Culture <8 Susceptible [facility] Other Urine Culture <4 Susceptible [facility] Other Urine Culture <2 Susceptible [facility] Other Urine Culture <1 Susceptible [facility] Other Urine Culture <0.25 Susceptible [facility] Other Urine Culture <0.5 Susceptible [facility] Other Urine Culture <32 Susceptible [facility] Other Urine Culture >8 Resistant [facility] Other Urine Culture >2/38 Resistant [facility] Other A1C HEMOGLOBINon 02-26-2022 HbA1c (Bld) [Mass fraction] 6.40 % [facility] Other Glucose - FINGER STICKon Glucose [Mass/Vol] 151 mg/dL [facility] Other HbA1c (Bld) [Mass fraction]o n 02-26-2022 A1C HEMOGLOBIN [facility] Other MG MAMM SCREEN 3D ARELIS CADon 01-09-2022 MG MAMM SCREEN 3D ARELIS CAD Patient: XIMENA ZAPATA Exam Date: 01/09/2022 : 1975 Gender:F Ordering : DR ROLANDO GARCIA . Admission #: [id number] Family : Order #: [id number] CLICK HERE TO VIEW EXAM kRADIOLOGY REPORT PROCEDURE: MAMMOGRAM SCREENING 3D BILATERAL CAD COMPARISON: MG MAMM SCREEN 3D ARELIS CAD, 11/24/2020. MG MAMM SCREEN ARELIS W CAD, 11/05/2017. INDICATIONS: Screening mammography Calculator Name NCI Breast Cancer Risk Assessment Tool 5 Year Breast Cancer Risk 0.60% Lifetime Breast Cancer Risk 6.90% Personal Breast Cancer No Personal Ovarian Cancer No Treatments None Family Cancers Mother with pancreatic cancer at age 66; Grandmother-maternal with colon cancer at age 79. LOCATION: [facility] BREAST COMPOSITION: Scattered areas fibroglandular density. FINDINGS: DIAGNOSTIC CATEGORY 1--NEGATIVE. NO CHANGE FROM COMPARISON ASSESSMENT. Scattered benign-appearing lymph nodes are present. RIGHT BREAST: No significant suspicious finding. LEFT BREAST: No significant suspicious finding. RECOMMENDATIONS: ROUTINE MAMMOGRAM AND CLINICAL EVALUATION IN 12 MONTHS. PLEASE NOTE: A NORMAL MAMMOGRAM DOES NOT EXCLUDE THE POSSIBILITY OF BREAST CANCER. A CLINICALLY SUSPICIOUS PALPABLE LUMP SHOULD BE BIOPSIED. Dictated by: Robbin Olmos MD on 01/09/2022 at 12:45 Approved by: Robbin Olmos MD on 01/09/2022 at 12:47 Normal [facility] A1C HEMOGLOBINon 11-14-2021 HbA1c (Bld) [Mass fraction] 6.5 % [facility] Other Glucose - FINGER STICKon Glucose [Mass/Vol] 130 mg/dL [facility] Other HbA1c (Bld) [Mass fraction]o n 11-14-2021 A1C HEMOGLOBIN [facility] Other A1C HEMOGLOBINon 08-14-2021 HbA1c (Bld) [Mass fraction] 7.1 % [facility] Other Glucose - FINGER STICKon Glucose [Mass/Vol] 196 mg/dL [facility] Other HbA1c (Bld) [Mass fraction]o n 08-14-2021 A1C HEMOGLOBIN [facility] Other A1C HEMOGLOBINon 05-07-2021 HbA1c (Bld) [Mass fraction] 6.5 % [facility] Other Glucose - FINGER STICKon Glucose [Mass/Vol] 129 mg/dL [facility] Other HbA1c (Bld) [Mass fraction]o n 05-07-2021 A1C HEMOGLOBIN [facility] Other Glucose - FINGER STICKon Glucose [Mass/Vol] 104 mg/dL [facility] Other Glucose - FINGER [facility]ICKon Glucose [Mass/Vol] 160 mg/dL [facility] Other Albumin [Mass/volume] in Bod y fluidOrdered By: Katie Robledo on 12-18-2020 Albumin (Body fld) [Mass/Vol] 3.8 g/dL 3.2-5.5 [facility] Alkaline phosphatase [Enzyma tic activity/volume] in Serum or PlasmaOrdered By: Katie Robledo on 12-18-2020 ALP [Catalytic activity/Vol] 100 U/L 32-92 [facility] Aspartate aminotransferase [ Enzymatic activity/volume] in Serum or PlasmaOrdered By: Katie Robledo on 12-18-2020 AST [Catalytic activity/Vol] 15 U/L 10-42 [facility] Bilirubin.total [Mass/volume ] in Serum or PlasmaOrdered By: Katie Robledo on 12-18-2020 Bilirubin [Mass/Vol] 0.9 mg/dL 0.3-1.2 [facility] Calcium [Mass/volume] in Ser um or PlasmaOrdered By: Katie Robledo on 12-18-2020 Calcium [Mass/Vol] 9.2 mg/dL 8.2-10.2 [facility] Carbon dioxide, total [Moles /volume] in Serum or PlasmaOrdered By: Katie Robledo on 12-18-2020 CO2 [Moles/Vol] 22.2 mmol/L 22.0-30.0 [facility] Chloride [Moles/volume] in S keisha or PlasmaOrdered By: Katie Robledo on 12-18-2020 Chloride [Moles/Vol] 102 mmol/L 95-114 [facility] Cholesterol [Mass/volume] in Serum or PlasmaOrdered By: Katie Robledo on 12-18-2020 Cholesterol [Mass/Vol] 285 mg/dL 140-200 [facility] Comment on above: Chol less than 200 m g/dl low riskChol 201-239 mg/dl borderline riskChol 240 mg/dl and greater high risk Cholesterol in LDL Calc [Mas s/Vol]Ordered By: Katie Robledo on 12-18-2020 Cholesterol in LDL [Mass/Vol] 212 mg/dL 0-100 [facility] Comment on above: LDL ATP III CLASSIFI CATIONLDL less than 100 mg/dL OptimalLDL 100-129 mg/dL Near or above optimalLDL 130-159 mg/dL Borderline highLDL 160-189 mg/dL HighLDL greater than 189 mg/dL Very high Cholesterol in VLDL Calc [Ma ss/Vol]Ordered By: Katie Robledo on 12-18-2020 Cholesterol in VLDL [Mass/Vol] 30 mg/dL [facility] Creatinine [Mass/volume] in UrineOrdered By: Katie Robledo on 12-18-2020 Creatinine (U) [Mass/Vol] 60.6 mg/dL [facility] Comment on above: No reference range e stablished Creatinine and Glomerular fi ltration rate.predicted panel (S/P/Bld)Ordered By: Katie Robledo on 12-18-2020 Creatinine [Mass/Vol] 0.61 mg/dL 0.44-1.03 [facility] Estimated glomerular filtrat ion rate (GFR) non- AmericanOrdered By: Katie Robledo on 12-18-2020 GFR/1.73 sq M.predicted among non-blacks MDRD (S/P/Bld) [Vol rate/Area] > 60 mL/Min [facility] Globulin Calc (S) [Mass/Vol] Ordered By: Katie Robledo on 12-18-2020 Globulin (S) [Mass/Vol] 2.0 g/dL [facility] Glucose [Mass/volume] in Ser um or PlasmaOrdered By: Katie Robledo on 12-18-2020 Glucose [Mass/Vol] 262 mg/dL 70-100 [facility] Comment on above: ADA recommended refe rence rangeRandom Glucose Reference Range is dependent on time and content of last meal. Glucose of more than 200 mg/dL in a nonstressed, ambulatory subject supports the diagnosis of Diabetes Mellitus. Laboratory - Chemistry and C hemistry - challengeOrdered By: Katie Robledo on 12-18-2020 Cobalamin (Vitamin B12) [Mass/Vol] 537 pg/mL 180-914 [facility] Microalbumin [Mass/volume] i n UrineOrdered By: Katie Robledo on 12-18-2020 Albumin DL <= 20 mg/L (U) [Mass/Vol] mg/dL 0.0-1.8 [facility] No Panel InformationOrdered By: Katie Robledo on 12-18-2020 C-Peptide 0.9 ng/mL 1.1-4.4 [facility] Comment on above: C-Peptide reference interval is for fasting patients.Performed at: - [id number] [place], [place] [id number] Director: Mazin Banerjee PhD, Phone: [phone] Estimated GFR () > 60 mL/Min [facility] Comment on above: GFR estimated refere nce range: According to KDOQI guidelines, <60 ml/min/1.73m2 is sufficient to diagnose a patient with chronic kidney disease. Pharmacy Creatinine Clearance (Chem N/A [facility] Potassium [Moles/volume] in Serum or PlasmaOrdered By: Katie Robledo on 12-18-2020 Potassium [Moles/Vol] 4.2 mmol/L 3.5-5.1 [facility] Protein [Mass/volume] in Ser um or PlasmaOrdered By: Katie Robledo on 12-18-2020 Protein [Mass/Vol] 5.8 g/dL 6.1-7.9 [facility] Serum glutamate decarboxylas e 65 antibody assay (units/volume)Ordered By: Katie Robledo on 12-18-2020 Glutamate decarboxylase 65 Ab Qn (S) 23.1 U/mL 0.0-5.0 [facility] Comment on above: Performed at: [facility] [address] [id number] Director: Randi De Jesus MD, Phone: [phone] Serum insulin antibody assay (units/volume)Ordered By: Katie Robledo on 12-18-2020 Insulin Ab Qn (S) <5.0 uU/mL . [facility] Comment on above: This test is also kn own as insulin autoantibody or IAA.This test was developed and its performance characteristicsdetermined by [facility]. It has not been cleared or approvedby the Food and Drug Administration.Reference Range:<5.0 Negative> or = 5.0 PositivePerformed at: [facility] - [facility] [id number] [place], [place] [id number] Director: Ryan Kerr MD, Phone: [phone] Serum or plasma alanine escobar otransferase measurement without P-5'-P (enzymatic activiOrdered By: Katie Robledo on 12-18-2020 ALT No additional P-5'-P [Catalytic activity/Vol] 25 U/L 10-60 [facility] Serum or plasma albumin/glob ulin mass ratioOrdered By: Katie Robledo on 12-18-2020 Albumin/Globulin [Mass ratio] 1.9 {ratio} [facility] Serum or plasma high density lipoprotein (HDL) cholesterol measurementOrdered By: Katie Robledo on 12-18-2020 Cholesterol in HDL [Mass/Vol] 42 mg/dL 35-85 [facility] Comment on above: HDL CHOL ATP-III CLA SSIFICATION Cardiovascular RiskHDL > or equal to 60 mg/dL LOWHDL < 40 mg/dL HIGH Serum or plasma total choles terol/high density lipoprotein (HDL) cholesterol mass ratOrdered By: Katie Robledo on 12-18-2020 Cholesterol.total/Ch olesterol in HDL [Mass ratio] 6.8 {ratio} <5.0 [facility] Sodium [Moles/volume] in Ser um or PlasmaOrdered By: Katie Robledo on 12-18-2020 Sodium [Moles/Vol] 133 mmol/L 136-146 [facility] Triglyceride [Mass/volume] i n Serum or PlasmaOrdered By: Katie Robledo on 12-18-2020 Triglyceride [Mass/Vol] 154 mg/dL 35-149 [facility] Comment on above: TRIG ATP III CLASSIF ICATIONTRIG less than 150 mg/dL NormalTRIG 150-199 mg/dL Borderline highTRIG 200-500 mg/dL High TRIG greater than 500 mg/dL Very highStandard traceable to the Center for Disease Conrtrol and Prevention (CDC) test method. Urea nitrogen [Mass/volume] in Serum or PlasmaOrdered By: Katie Robledo on 12-18-2020 Urea nitrogen [Mass/Vol] 9 mg/dL 12-21 [facility] Urine microalbumin/creatinin e mass ratioOrdered By: Katie Robledo on 12-18-2020 Albumin/Creatinine DL <= 20 mg/L (U) [Mass ratio] TNP [facility] Comment on above: Test not performed Vital Signs Date Time Vital Sign Value Performing Clinician Facility 02-04-2024 11:16-0500 Body height 165.1 cm [facility] 02-04-2024 11:16-0500 Body mass index (BMI) [Ratio] 28.7 kg/m2 [facility] 02-04-2024 11:16-0500 Body weight 78.21 kg [facility] 02-04-2024 11:16-0500 Diastolic blood pressure 69 mm[Hg] [facility] 02-04-2024 11:16-0500 Heart rate 71 /min [facility] 02-04-2024 11:16-0500 Respiratory rate 18 /min [facility] 02-04-2024 11:16-0500 SaO2% (BldA) [Mass fraction] 98 % [facility] 02-04-2024 11:16-0500 Systolic blood pressure 119 mm[Hg] [facility] 10-29-2023 10:40-0400 Body height 165.1 cm [facility] 10-29-2023 10:40-0400 Body mass index (BMI) [Ratio] 27.8 kg/m2 [facility] 10-29-2023 10:40-0400 Body weight 75.94 kg [facility] 10-29-2023 10:40-0400 Diastolic blood pressure 83 mm[Hg] [facility] 10-29-2023 10:40-0400 Heart rate 76 /min [facility] 10-29-2023 10:40-0400 Respiratory rate 16 /min [facility] 10-29-2023 10:40-0400 SaO2% (BldA) [Mass fraction] 99 % [facility] 10-29-2023 10:40-0400 Systolic blood pressure 126 mm[Hg] [facility] 06-25-2023 11:12-0400 Body height 165.1 cm MD Magy Shi Work Phone: [facility] 06-25-2023 11:12-0400 Body mass index (BMI) [Ratio] 29.2 kg/m2 MD Magy Shi Work Phone: [facility] 06-25-2023 11:12-0400 Body weight 79.83 kg MD Magy Shi Work Phone: [facility] 06-25-2023 11:12-0400 Diastolic blood pressure 72 mm[Hg] MD Magy Shi Work Phone: [facility] 06-25-2023 11:12-0400 Heart rate 67 /min MD Magy Shi Work Phone: [facility] 06-25-2023 11:12-0400 Respiratory rate 18 /min MD Magy Shi Work Phone: [facility] 06-25-2023 11:12-0400 SaO2% (BldA) [Mass fraction] 100 % MD Magy Shi Work Phone: [facility] 06-25-2023 11:12-0400 Systolic blood pressure 118 mm[Hg] MD Magy Shi Work Phone: [facility] 03-17-2023 10:45-0500 Body height 165.1 cm Tondra Mapus Other [facility] 03-17-2023 10:45-0500 Body mass index (BMI) [Ratio] 29.73 kg/m2 Tondra Mapus Other [facility] [employer] Other 03-17-2023 10:45-0500 Body weight 81.06 kg Tondra Mapus Other [facility] Other 03-17-2023 10:45-0500 Body weight 81.05 kg MD Magy Shi Work Phone: [facility] 03-17-2023 10:45-0500 Diastolic blood pressure 68 mm[Hg] Tondra Mapus Other [facility] 03-17-2023 10:45-0500 Respiratory rate 18 /min Tondra Mapus Other [facility] Other 03-17-2023 10:45-0500 SaO2% (BldA) [Mass fraction] 98 % Tondra Mapus Other [facility] Other 03-17-2023 10:45-0500 Systolic blood pressure 119 mm[Hg] Tondra Mapus Other [facility] 12-17-2022 11:15-0400 Body height 165.1 cm Tondra Mapus Other [facility] Other 12-17-2022 11:15-0400 Body mass index (BMI) [Ratio] 28.84 kg/m2 Tondra Mapus Other [facility] Other 12-17-2022 11:15-0400 Body weight 78.61 kg Tondra Mapus Other [facility] Other 12-17-2022 11:15-0400 Diastolic blood pressure 79 mm[Hg] Tondra Mapus Other [facility] Other 12-17-2022 11:15-0400 Respiratory rate 18 /min Tondra Mapus Other [facility] Other 12-17-2022 11:15-0400 SaO2% (BldA) [Mass fraction] 99 % Tondra Mapus Other [facility] Other 12-17-2022 11:15-0400 Systolic blood pressure 127 mm[Hg] Tondra Mapus Other [facility] Other 06-26-2022 13:05-0400 Body height 165.1 cm Delphine Garcia Other [facility] Other 06-26-2022 13:05-0400 Body mass index (BMI) [Ratio] 30.28 kg/m2 Delphine Garcia Other [facility] Other 06-26-2022 13:05-0400 Body temperature 97.7 [degF] Delphine Garcia Other [facility] Other 06-26-2022 13:05-0400 Body weight 82.56 kg Delphine Garcia Other [facility] Other 06-26-2022 13:05-0400 Diastolic blood pressure 83 mm[Hg] Delphine aGrcia Other [facility] Other 06-26-2022 13:05-0400 Respiratory rate 18 /min Delphine Garcia Other [facility] Other 06-26-2022 13:05-0400 SaO2% (BldA) [Mass fraction] 100 % Delphine Garcia Other [facility] Other 06-26-2022 13:05-0400 Systolic blood pressure 123 mm[Hg] Delphine Garcia Other [facility] Other 05-30-2022 08:45-0500 Body height 165.1 cm Lisa Scally Other [facility] Other 05-30-2022 08:45-0500 Body mass index (BMI) [Ratio] 30.23 kg/m2 Lisa Scally Other [facility] Other 05-30-2022 08:45-0500 Body weight 82.42 kg Lisa Scally Other [facility] Other 05-30-2022 08:45-0500 Diastolic blood pressure 83 mm[Hg] Lisa Scally Other [facility] Other 05-30-2022 08:45-0500 Respiratory rate 18 /min Lisa Scally Other [facility] Other 05-30-2022 08:45-0500 SaO2% (BldA) [Mass fraction] 100 % Lisa Scally Other [facility] Other 05-30-2022 08:45-0500 Systolic blood pressure 126 mm[Hg] Lisa Scally Other [facility] Other 04-09-2022 14:45-0500 Body height 165.1 cm Lisa Scally Other [facility] Other 04-09-2022 14:45-0500 Body mass index (BMI) [Ratio] 30.77 kg/m2 Lisa Scally Other [facility] Other 04-09-2022 14:45-0500 Body weight 83.87 kg Lisa Scally Other [facility] Other 04-09-2022 14:45-0500 Diastolic blood pressure 77 mm[Hg] Lisa Scally Other [facility] Other 04-09-2022 14:45-0500 Respiratory rate 18 /min Lisa Scally Other [facility] Other 04-09-2022 14:45-0500 SaO2% (BldA) [Mass fraction] 99 % Lisa Scally Other [facility] Other 04-09-2022 14:45-0500 Systolic blood pressure 117 mm[Hg] Lisa Scally Other [facility] Other 02-26-2022 11:15-0500 Body height 165.1 cm Tondra Mapus Other [facility] Other 02-26-2022 11:15-0500 Body mass index (BMI) [Ratio] 30.43 kg/m2 Tondra Mapus Other [facility] Other 02-26-2022 11:15-0500 Body weight 82.96 kg Tondra Mapus Other [facility] Other 02-26-2022 11:15-0500 Diastolic blood pressure 65 mm[Hg] Tondra Mapus Other [facility] Other 02-26-2022 11:15-0500 Respiratory rate 18 /min Tondra Mapus Other [facility] Other 02-26-2022 11:15-0500 SaO2% (BldA) [Mass fraction] 99 % Tondra Mapus Other [facility] Other 02-26-2022 11:15-0500 Systolic blood pressure 126 mm[Hg] Tondra Mapus Other [facility] Other 02-07-2022 09:45-0500 Body height 165.1 cm Brook Lerner Other [facility] Other 02-07-2022 09:45-0500 Body mass index (BMI) [Ratio] 30.95 kg/m2 Brook Fitt Other [facility] Other 02-07-2022 09:45-0500 Body weight 84.37 kg Brook Fitt Other [facility] Other 01-09-2022 14:00-0400 Body height 165.1 cm Lisa Scally Other [facility] Other 01-09-2022 14:00-0400 Body mass index (BMI) [Ratio] 30.02 kg/m2 Lisa Scally Other [facility] Other 01-09-2022 14:00-0400 Body weight 81.83 kg Lisa Scally Other [facility] Other 01-09-2022 14:00-0400 Diastolic blood pressure 70 mm[Hg] Lisa Scally Other [facility] Other 01-09-2022 14:00-0400 Respiratory rate 18 /min Lisa Scally Other [facility] Other 01-09-2022 14:00-0400 SaO2% (BldA) [Mass fraction] 100 % Lisa Scally Other [facility] Other 01-09-2022 14:00-0400 Systolic blood pressure 137 mm[Hg] Lisa Scally Other [facility] Other 11-28-2021 14:00-0400 Body height 165.1 cm Lisa Scally Other [facility] Other 11-28-2021 14:00-0400 Body mass index (BMI) [Ratio] 30.15 kg/m2 Lisa Scally Other [facility] Other 11-28-2021 14:00-0400 Body weight 82.19 kg Lisa Scally Other [facility] Other 11-28-2021 14:00-0400 Diastolic blood pressure 65 mm[Hg] Lisa Scally Other [facility] Other 11-28-2021 14:00-0400 Respiratory rate 18 /min Lisa Scally Other [facility] Other 11-28-2021 14:00-0400 SaO2% (BldA) [Mass fraction] 100 % Lisa Scally Other [facility] Other 11-28-2021 14:00-0400 Systolic blood pressure 111 mm[Hg] Lisa Scally Other [facility] Other 11-14-2021 12:00-0400 Body height 165.1 cm Tondra Mapus Other [facility] Other 11-14-2021 12:00-0400 Body mass index (BMI) [Ratio] 30.65 kg/m2 Tondra Mapus Other [facility] Other 11-14-2021 12:00-0400 Body weight 83.55 kg Tondra Mapus Other [facility] Other 11-14-2021 12:00-0400 Diastolic blood pressure 57 mm[Hg] Tondra Mapus Other [facility] Other 11-14-2021 12:00-0400 Respiratory rate 18 /min Tondra Mapus Other [facility] Other 11-14-2021 12:00-0400 SaO2% (BldA) [Mass fraction] 99 % Tondra Mapus Other [facility] Other 11-14-2021 12:00-0400 Systolic blood pressure 115 mm[Hg] Tondra Mapus Other [facility] Other 10-23-2021 14:00-0400 Body height 165.1 cm Lisa Scally Other [facility] Other 10-23-2021 14:00-0400 Body mass index (BMI) [Ratio] 30.65 kg/m2 Lisa Scally Other [facility] Other 10-23-2021 14:00-0400 Body weight 83.55 kg Lisa Scally Other [facility] Other 10-23-2021 14:00-0400 Diastolic blood pressure 76 mm[Hg] Lisa Scally Other [facility] Other 10-23-2021 14:00-0400 Respiratory rate 18 /min Lisa Scally Other [facility] Other 10-23-2021 14:00-0400 SaO2% (BldA) [Mass fraction] 100 % Lisa Scally Other [facility] Other 10-23-2021 14:00-0400 Systolic blood pressure 110 mm[Hg] Lisa Scally Other [facility] Other 09-11-2021 11:45-0400 Body height 165.1 cm Lisa Scally Other [facility] Other 09-11-2021 11:45-0400 Body mass index (BMI) [Ratio] 30.6 kg/m2 Lisa Scally Other [facility] Other 09-11-2021 11:45-0400 Body weight 83.42 kg Lisa Scally Other [facility] Other 09-11-2021 11:45-0400 Diastolic blood pressure 70 mm[Hg] Lisa Scally Other [facility] Other 09-11-2021 11:45-0400 Respiratory rate 18 /min Lisa Scally Other [facility] Other 09-11-2021 11:45-0400 SaO2% (BldA) [Mass fraction] 100 % Lisa Scally Other [facility] Other 09-11-2021 11:45-0400 Systolic blood pressure 115 mm[Hg] Lisa Scally Other [facility] Other 08-14-2021 12:00-0400 Body height 165.1 cm Tondra Mapus Other [facility] Other 08-14-2021 12:00-0400 Body mass index (BMI) [Ratio] 30.78 kg/m2 Tondra Mapus Other [facility] Other 08-14-2021 12:00-0400 Body weight 83.92 kg Tondra Mapus Other [facility] Other 08-14-2021 12:00-0400 Diastolic blood pressure 69 mm[Hg] Tondra Mapus Other [facility] Other 08-14-2021 12:00-0400 Respiratory rate 16 /min Tondra Mapus Other [facility] Other 08-14-2021 12:00-0400 SaO2% (BldA) [Mass fraction] 99 % Tondra Mapus Other [facility] Other 08-14-2021 12:00-0400 Systolic blood pressure 119 mm[Hg] Tondra Mapus Other [facility] Other 07-31-2021 11:30-0400 Body height 165.1 cm Lisa Scally Other [facility] Other 07-31-2021 11:30-0400 Body mass index (BMI) [Ratio] 31.03 kg/m2 Lisa Scally Other [facility] Other 07-31-2021 11:30-0400 Body weight 84.6 kg Lisa Scally Other [facility] Other 07-31-2021 11:30-0400 Diastolic blood pressure 75 mm[Hg] Lisa Scally Other [facility] Other 07-31-2021 11:30-0400 Respiratory rate 18 /min Lisa Scally Other [facility] Other 07-31-2021 11:30-0400 SaO2% (BldA) [Mass fraction] 99 % Lisa Scally Other [facility] Other 07-31-2021 11:30-0400 Systolic blood pressure 115 mm[Hg] Lisa Scally Other [facility] Other 06-28-2021 11:00-0400 Body height 165.1 cm Lisa Scally Other [facility] Other 06-28-2021 11:00-0400 Body mass index (BMI) [Ratio] 32.61 kg/m2 Lisa Scally Other [facility] Other 06-28-2021 11:00-0400 Body weight 88.91 kg Lisa Scally Other [facility] Other 06-28-2021 11:00-0400 Diastolic blood pressure 79 mm[Hg] Lisa Scally Other [facility] Other 06-28-2021 11:00-0400 Respiratory rate 18 /min Lisa Scally Other [facility] Other 06-28-2021 11:00-0400 SaO2% (BldA) [Mass fraction] 98 % Lisa Scally Other [facility] Other 06-28-2021 11:00-0400 Systolic blood pressure 115 mm[Hg] Lisa Scally Other [facility] Other 05-07-2021 15:00-0500 Body height 165.1 cm Tondra Mapus Other [facility] Other 05-07-2021 15:00-0500 Body mass index (BMI) [Ratio] 31.61 kg/m2 Tondra Mapus Other [facility] Other 05-07-2021 15:00-0500 Body weight 86.18 kg Tondra Mapus Other [facility] Other 05-07-2021 15:00-0500 Diastolic blood pressure 75 mm[Hg] Tondra Mapus Other [facility] Other 05-07-2021 15:00-0500 Respiratory rate 16 /min Tondra Mapus Other [facility] Other 05-07-2021 15:00-0500 SaO2% (BldA) [Mass fraction] 98 % Tondra Mapus Other [facility] Other 05-07-2021 15:00-0500 Systolic blood pressure 119 mm[Hg] Tondra Mapus Other [facility] Other 01-29-2021 14:30-0400 Body height 165.1 cm Tondra Mapus Other [facility] Other 01-29-2021 14:30-0400 Body mass index (BMI) [Ratio] 29.95 kg/m2 Tondra Mapus Other [facility] Other 01-29-2021 14:30-0400 Body weight 81.65 kg Tondra Mapus Other [facility] Other 01-29-2021 14:30-0400 Diastolic blood pressure 85 mm[Hg] Tondra Mapus Other [facility] Other 01-29-2021 14:30-0400 Respiratory rate 16 /min Tondra Mapus Other [facility] Other 01-29-2021 14:30-0400 SaO2% (BldA) [Mass fraction] 98 % Tondra Mapus Other [facility] Other 01-29-2021 14:30-0400 Systolic blood pressure 143 mm[Hg] Tondra Mapus Other [facility] Other 12-27-2020 08:45-0400 Body height 165.1 cm Tondra Mapus Other [facility] Other 12-27-2020 08:45-0400 Body mass index (BMI) [Ratio] 29.72 kg/m2 Tondra Mapus Other [facility] Other 12-27-2020 08:45-0400 Body weight 81.01 kg Tondra Mapus Other [facility] Other 12-27-2020 08:45-0400 Diastolic blood pressure 83 mm[Hg] Tondra Mapus Other [facility] Other 12-27-2020 08:45-0400 Respiratory rate 18 /min Tondra Mapus Other [facility] Other 12-27-2020 08:45-0400 SaO2% (BldA) [Mass fraction] 98 % Katie Robledo Other [facility] Other 12-27-2020 08:45-0400 Systolic blood pressure 141 mm[Hg] Katie Robledo Other [facility] Other Encounters Encounter Date Encounter Type Care Provider Facility Start: 02-04-2024 End: 02-04-2024 ambulatory [facility] Work Phone: Start: 02-04-2024 End: 02-04-2024 Patient encounter procedure [facility] Work Phone: Start: 01-26-2024 Non-patient / Non-visit [facility] Physician [facility] Work Phone: Start: 01-26-2024 End: 01-26-2024 ambulatory KATIE ROBLEDO [facility] Start: 12-16-2023 End: 12-16-2023 ambulatory CALIN LOPEZ Not Available Start: 10-29-2023 End: 10-29-2023 ambulatory [facility] Work Phone: Start: 10-29-2023 End: 10-29-2023 Patient encounter procedure [facility] Physician [facility] Work Phone: Start: 06-25-2023 End: 06-25-2023 ambulatory MD Magy Shi Work Phone: [facility] Work Phone: Start: 06-25-2023 End: 06-25-2023 Patient encounter procedure MD Magy Shi Work Phone: [facility] Physician [facility] Work Phone: Start: 04-30-2023 End: 04-30-2023 Discharged Recurring MD Mag[facility] Shi [facility] Work Phone: Start: 04-30-2023 End: 05-01-2023 ambulatory MD Magy Shi Work Phone: [facility] Other Start: 04-30-2023 Nursing evaluation o f patient and report Tondra Mapus [facility] Start: 03-17-2023 (DM) Diabetes Tondra Mapus [facility] Start: 03-17-2023 End: 03-17-2023 ambulatory Tondra Mapus Other [facility] Other Start: 03-17-2023 End: 03-17-2023 Patient encounter procedure MD Magy Shi Work Phone: [facility] Work Phone: Start: 03-10-2023 End: 03-10-2023 ambulatory Tondra Mapus Other [facility] Other Start: 03-10-2023 Telephone encounter Tondra Mapus [facility] Start: 01-24-2023 End: 01-24-2023 ambulatory Tondra Mapus Other [facility] Other Start: 01-24-2023 Telephone encounter Tondra Mapus [facility] Start: 12-17-2022 (DM) Diabetes Tondra Mapus [facility] Start: 12-17-2022 End: 12-17-2022 ambulatory Tondra Mapus Other [facility] Other Start: 10-30-2022 ambulatory Ravi Trevino acility:[facility] Start: 09-10-2022 Registered Recurring CINDY Moran ra Waddell Work Phone: [facility] Work Phone: Start: 06-26-2022 Office outpatient vi sit 25 minutes Delphine Garcia [facility] Start: 06-26-2022 End: 06-26-2022 ambulatory MD Magy Shi Work Phone: [facility] Work Phone: Start: 06-26-2022 End: 06-26-2022 Departed Referred MD Magy Shi Work Phone: [facility] [place] Work Phone: Start: 06-07-2022 End: 06-07-2022 ambulatory Magy Shi Other [facility] Other Start: 06-07-2022 Telephone encounter Magy MAHMOOD [facility] Start: 06-06-2022 End: 06-06-2022 ambulatory Lisa Talavera Other [facility] Other Start: 06-06-2022 Telephone encounter Lisa [facility] Start: 06-04-2022 Registered Recurring MD Magy Shi Work Phone: [facility] Work Phone: Start: 05-30-2022 Registered Recurring MD Magy Shi Work Phone: [facility] Work Phone: Start: 05-30-2022 (FCCWMNF/U) Weight Management f/u Lisa Talavera [facility] Start: 05-30-2022 End: 05-31-2022 ambulatory Tondra K Mapus [facility] Other Start: 04-12-2022 End: 04-12-2022 ambulatory Lisa Talavera Other [facility] Other Start: 04-12-2022 Telephone encounter Lisa madd[facility] Start: 04-09-2022 (FCCWMNF/U) Weight Management f/u Lisa Talavera [facility] Start: 04-09-2022 End: 04-09-2022 ambulatory Lisa Talavera Other [facility] Other Start: 04-09-2022 Telephone encounter Lisa Talavera [place] [facility] Start: 03-08-2022 Adult health examination Tondra Mapus Other [facility] Other Start: 03-08-2022 End: 03-08-2022 ambulatory Tondra Mapus Other [facility] Other Start: 03-08-2022 Gynecological examination normal Tondra Mapus Other [facility] Other Start: 03-08-2022 Telephone encounter Tondra Mapus [facility] Start: 02-26-2022 (PUMP/CGM) Pump / Sensor Tondra Nadiraus [facility] Start: 02-26-2022 End: 02-26-2022 ambulatory Tondra Mapus Other [facility] Other Start: 02-07-2022 ([facility] WMNI) WMN Init ial Provider Brook Lerner [facility] Start: 02-07-2022 End: 02-07-2022 ambulatory Brook Lerner Other [facility] Other Start: 01-09-2022 ([facility]) Weight Management f/u Lisa Talavera [facility] Start: 01-09-2022 End: 01-10-[address] ROLANDO GARCIA Facility:[facility] Start: 12-21-2021 End: 12-21-2021 ambulatory Tondra Mapus Other [facility] Other Start: 12-21-2021 Telephone encounter Tondra Mapus [facility] Start: 11-28-2021 (FCCCWMNF/U) Weight Management f/u Lisa Scally [facility] Start: 11-28-2021 End: 11-28-2021 ambulatory Lisa Scally Other [facility] Other Start: 11-14-2021 (PUMP/CGM) Pump / Sensor Tondra Mapus [facility] Start: 11-14-2021 End: 11-14-2021 ambulatory Tondra Mapus Other [facility] Other Start: 11-14-2021 Telephone encounter Tondra Mapus [facility] Start: 10-23-2021 (FCCCWMNF/U) Weight Management f/u Lisa Jessiely [facility] Start: 10-23-2021 End: 10-23-2021 ambulatory Lisa Scally Other [facility] Other Start: 09-11-2021 (FCCWMNF/U) Weight Management f/u Lisa Jessiely [facility] Start: 09-11-2021 End: 09-11-2021 ambulatory Lisa Scally Other [facility] Other Start: 08-23-2021 End: 08-23-2021 ambulatory Lisa Scally Other [facility] Other Start: 08-23-2021 Telephone encounter Lisa Scally [place] [facility] Start: 08-14-2021 (PUMP/CGM) Pump / Sensor Tondra Mapus [facility] Start: 08-14-2021 End: 08-14-2021 ambulatory Tondra Mapus Other [facility] Other Start: 07-31-2021 (FCCCWMNF/U) Weight Management f/u Lisa Scally [facility] Start: 07-31-2021 End: 07-31-2021 ambulatory Lisa Talavera Other [facility] Other Start: 06-28-2021 End: 06-28-2021 ambulatory Lisa Talavera Other [facility] Other Start: 06-28-2021 Nutrition therapy Lisa Talavera [facility] Start: 06-28-2021 Telephone encounter Lisa Trevino [place] [facility] Start: 06-11-2021 End: 06-11-2021 ambulatory Tondra Mapus Other [facility] Other Start: 06-11-2021 Telephone encounter Tondra Mapus [facility] Start: 05-08-2021 End: 05-08-2021 ambulatory Tondra Mapus Other [facility] Other Start: 05-08-2021 Telephone encounter Tondra Mapus [facility] Start: 05-07-2021 ([facility] C Vac) [facility] Co vid Vaccine [facility] Start: 05-07-2021 (PUMP/CGM) Pump / Sensor Tondra Nadiraus [facility] Start: 05-07-2021 End: 05-07-2021 ambulatory Tondra Mapus Other [facility] Other Start: 03-12-2021 End: 03-12-2021 ambulatory Brook Lerner Other [facility] Other Start: 03-12-2021 Diabetic care education [facility] Start: 03-09-2021 End: 03-09-2021 ambulatory Tondra Mapus Other [facility] Other Start: 03-09-2021 Telephone encounter Tondra Venkat [facility] Start: 02-12-2021 End: 02-12-2021 ambulatory Tondra Mapus Other [facility] Other Start: 02-12-2021 Telephone encounter Tondra Venkat Wheatley [facility] Start: 02-08-2021 (RD) Flower [employer] Brook Lerner [facility] Start: 02-08-2021 End: 02-08-2021 ambulatory Brook Lerner Other [facility] Other Start: 01-29-2021 (DM) Diabetes Tondra Venkat [facility] Start: 01-29-2021 End: 01-29-2021 ambulatory Tondra Mapus Other [facility] Other Start: 01-02-2021 Nursing evaluation o f patient and report Tondra Nadiraus [facility] Start: 12-28-2020 Telephone encounter Tondra Nadiraus Dioni [facility] Start: 12-27-2020 (DM) Diabetes Tondra Venkat [facility] Start: 12-27-2020 Telephone encounter Tondra Nadiraus Dioni [facility] Start: 11-08-2019 End: 11-08-2019 Pre-procedure evaluation check Tondra Mapus Other [facility] Other Procedures Date Procedure Procedure Detail Performing Clinician Start: 06-26-2022 Piperacillin/tazobactam Delphine Garcia Other Ligation of fallopia n tube Tondra Mapus Other End: 02-16-2020 Screening for malignant neoplasm of breast Tondra Mapus Other Plan of Treatment Date Care Activity Detail Author Start: 06-26-2022 Bacteria identified in Urine by Culture Urine Culture [facility] Comprehensive metabo lic 2000 panel - Serum or Plasma [facility] Patient Education Low blood suga r in people with diabetes [facility] for Diabetics [facility] Work Phone: [facility] Immunizations Immunization Date Immunization Notes Care Provider Fa jenniferwayne 12-25-2021 influenza virus vaccine, split virus (incl. purified surface antigen) Tondra Mapus Other [facility] [employer] Other 12-25-2021 influenza virus vaccine, unspecified formulation MD Magy Shi Work Phone: [facility] 05-07-2021 COVID-19 Moderna Tondra Mapu s Other [facility] 01-29-2021 influenza, high dose seasonal, preservative-free Tondra Mapus Other [facility] Other 01-29-2021 influenza, injectabl e, quadrivalent, preservative free Lisamarina Talavera Other [facility] [employer] Other 01-29-2021 influenza virus vaccine, unspecified formulation MD Magy Shi Work Phone: [facility] 01-08-2020 influenza virus vaccine, split virus (incl. purified surface antigen) Tondra Mapus Other [facility] Other 01-08-2020 influenza virus vaccine, unspecified formulation MD Magy Shi Work Phone: [facility] 04-16-2017 Toradol per 15 mg Tondra Map us Other [facility] Other 04-16-2017 KENALOG - 10 mg Tondra Mapus Other [facility] Other 08-14-2015 Toradol per 15 mg Tondra Map us Other [facility] Other 03-26-2014 Depo-Medrol 40 mg Tondra Map Other [facility] Other Payers Date Payer Category Payer Self-pay [id number] 1975 Unknown [id number] 1975 Unknown [id number] 1975 Unknown [id number] 1959 [id number] Private Health Insurance [employer] [id number] Unknown [id number] Unknown [id number] Unknown [id number] Unknown [id number] Social History Date Type Detail Facility Unknown if ever smoked [facility] Other Sex Assigned At Sex Assigned At Bir th [facility] Other Start: 1975 Sex Assigned At Female F [facility] Start: 04-16-2017 End: 06-25-2023 Tobacco smoking status NHIS Never smoked tobacco (finding) [facility] Medical Equipment Procedure Code Equipment Code Equipment Origin al Text Equipment Identifier Dates Start: 12-27-2020 Clinical Notes 12-27-2020 to 04-30-2023 Note Date & Type Note Facility 04-30-2023 Evaluation note Encounter Date Diagnosis Assessment Notes Mar, Type 1 diabetes mellitus (ICD-10 - E10.9) Patient arrived today for assistance with the latest update and product enhancements for her Tandem insulin pump and Decom G6 CGM. Pt brought in her personal computer, Tandem pump, and Dexcom CGM. We were able to log in to the [employer] portal and accessed patient's account. Assisted the patient to complete the required steps and training videos for the software update. We were able to access the required Update ID [id number] and followed the instructional guide, software updated along with continuing Dexcom G6 session. No issues noted. Patient states she will use the rest of her Dexcom G6 CGM supply until finished and then switch to Dexcom G7 CGM. Pt states she has Dexcom G7 prescription at the pharmacy ready to fill. All questions and concerns addressed. Patient instructed to follow up with provider as scheduled. 30 minutes spent on education by Terrance PAGE, RN [facility] Other 12-18-2023 Evaluation note* Encounter Date Diagnosis Assessment Notes Treatment Notes Treatment Clinical Notes Feb, Hyperlipidemia, unspecified hyperlipidemia type (ICD-10 - E78.5) 11/2022 ldl 70 at target on statin Feb, Type 1 diabetes mellitus (ICD-10 - E10.9) Diabetes and exercise material was published 1. Uncontrolled, a Type 1 diabetes with A1c of 7.2% 2. Blood glucose levels according to dexcom g6 download 03/03/2023-03/16/20 23: Avg glucose 159. >180- 30%, 70-180-69%,<70-1%. Reviewed download with pt, infrequent incidence of hypoglycemia. Tbi slightly increased glucose above target postprandial, modified basal/icr settings- see below. Reviewed with pt use of exercise feature 1-2 hour before increased activity to reduce risk of hypoglycemia may also consider using when at work for higher glucose target. Pt given handout on tandem update, order sent for dexcom g7 cgm to [place]. Reviewed with pt may use dexcom g6 or g7 once update complete. Pt verbalizes understanding. 3. Patient is alert, oriented and receptive to making changes or counseling. Notes: Seen for an assessment of current glucose pattern, changes in treatment plan, counseling and coordination of care related to diabetes, risks, and benefits of treatment, medications, side effects. Given handouts to reinforce concepts reviewed during counseling, see scanned notes. TOPICS REVIEWED: 1. Time was spent reviewing: a. Basic concepts of diabetes, progressive beta cell , concepts of basal/bolus/correc tive insulin requirements. Basal: The goal is fasting blood glucose of 90-130mg. IF fasting blood glucose starts to run under 100mg 3x's/ week, decrease dose by 10% b. Nutrition: Concepts of healthy diet, encouraged to decrease saturated fat in diet and increase non-starchy vegetables and fruits in diet. BMI: Pt. needs to select one small change to decrease caloric intake or increase physical activity to help decrease weight. c. Correct treatment of hypoglycemia, carry a glucose source at all times on your person, in vehicles, and at bedside. Can use glucose tablets/4, four ounces of pop or juice equal to 15 G of carbohydrate. Blood glucose should be 100 mg/dl or higher when driving. d. ADA glucose goals for age and medical complexity reviewed e. Patient questions addressed 2. Activity/exercise: Encouraged to start any form of physical activity. Start low level and increase slowly to a minimal goal of 150 minutes/week. Limit activity to what is allowed by other issues such as cardiac, pulmonary or orthopedic restrictions. 3. Standards of care: Reminded to have an annual dilated eye exam, A1C every 3 months, urine testing for microalbumin once/year, check feet daily and report any cuts or sores that do not appear to be healing. 4. Meter: Plan to check blood glucose: Please check blood glucose levels 4 times/day. Back to back meals reveal effectiveness of bolus dosing. 5. [facility]. Contact office if any issues or concerns with patterns of hypoglycemia, hyperglycemia, or diabetes medication issues. 6. Prescriptions: Sample dexcom g7 cgm given. Sample of Tresiba U100 given for use with pump failure 03/17/23. Sent gvoke and dexcom g7 to [place] [facility]. 7. Prescriptions will not be filled unless you are compliant with follow up appointments or have a follow up appointment scheduled as ordered by your provider. Refills should be requested at the time of your visit. Feb, Dietary counseling and surveillance (ICD-10 - Z71.3) see above Feb, Current use of insulin (ICD-10 - Z79.4) Feb, Insulin pump titration (ICD-10 - Z46.81) Tandem control iq insulin pump with dexcom g6 Basal MN 0.86 changed to 0.92 units/hr (TBI 22.08 units/day) ICR MN 1:13 changed to 1:11 ISF MN 1:45 Target 110 active insulin time 5 hours Updated weight/tdi in control iq Feb, BMI 29.0-29.9,adult (ICD-10 - Z68.29) Eating healthy: tips to make it easier material was published Feb, Hypoglycemia (ICD-10 - E16.2) Hypoglycemia material was published Feb, Other Sick Day Lemuel n 1. Consider a site malfunction and urgent site change immediately throughout the sick day plan. Also, consider insulin by injection at any time in this plan if you feel the pump site is not working well. 2. If blood glucose > 300 check for ketones. a. Small ketones: give correction with the pump, drink 8-12 ounces no sugar drink every 30-60 minutes until glucose control regained. b. Moderate/Large ketones: if glucose 250-400 inject fast acting insulin 15% of your total daily dose by injection. Drink 16 ounces of no sugar drink then 8-12 ounces every 30 minutes even if you are not thirsty until glucose control is regained; may use diluted Gatorade. Recheck blood glucose every 2-3 hours. 3. Once blood glucose <200 drink fluids like regular sweetened Gatorade to avoid low glucose and to speed up fall in ketones. 4. If vomiting begins and ketones are large either call 911 or have someone take you the Emergency Department. 6 pound weight loss from last visit, continue with weight loss efforts. [facility] Other 09-19-2023 Evaluation note* Encounter Date Diagnosis Assessment Notes Treatment Notes Treatment Clinical Notes Nov, Hyperlipidemia, unspecified hyperlipidemia type (ICD-10 - E78.5) 11/2022 ldl 70 at target on statin Nov, Type 1 diabetes mellitus (ICD-10 - E10.9) 1. Controlled, a Type 1 diabetes with A1c of 6.4% 2. Blood glucose levels according to dexcom g6 download 12/03/2022-12/16/2022: Avg glucose 146. >180- 18%, 70-180-81%,<70-0%. Reviewed download with pt, infrequent incidence of hypoglycemia. Tbi slightly decreased, modified basal settings- see below. Reviewed with pt use of exercise feature 1-2 hour before increased activity to reduce risk of hypoglycemia may also consider using when at work for higher glucose target. Pt verbalizes understanding. 3. Patient is alert, oriented and receptive to making changes or counseling. Notes: Seen for an assessment of current glucose pattern, changes in treatment plan, counseling and coordination of care related to diabetes, risks, and benefits of treatment, medications, side effects. Given handouts to reinforce concepts reviewed during counseling, see scanned notes. TOPICS REVIEWED: 1. Time was spent reviewing: a. Basic concepts of diabetes, progressive beta cell , concepts of basal/bolus/correct carol ann insulin requirements. Basal: The goal is fasting blood glucose of 90-130mg. IF fasting blood glucose starts to run under 100mg 3x's/ week, decrease dose by 10% b. Nutrition: Concepts of healthy diet, encouraged to decrease saturated fat in diet and increase non-starchy vegetables and fruits in diet. BMI: Pt. needs to select one small change to decrease caloric intake or increase physical activity to help decrease weight. c. Correct treatment of hypoglycemia, carry a glucose source at all times on your person, in vehicles, and at bedside. Can use glucose tablets/4, four ounces of pop or juice equal to 15 G of carbohydrate. Blood glucose should be 100 mg/dl or higher when driving. d. ADA glucose goals for age and medical complexity reviewed e. Patient questions addressed 2. Activity/exercise: Encouraged to start any form of physical activity. Start low level and increase slowly to a minimal goal of 150 minutes/week. Limit activity to what is allowed by other issues such as cardiac, pulmonary or orthopedic restrictions. 3. Standards of care: Reminded to have an annual dilated eye exam, A1C every 3 months, urine testing for microalbumin once/year, check feet daily and report any cuts or sores that do not appear to be healing. 4. Meter: Plan to check blood glucose: Please check blood glucose levels 4 times/day. Back to back meals reveal effectiveness of bolus dosing. 5. [facility]. Contact office if any issues or concerns with patterns of hypoglycemia, hyperglycemia, or diabetes medication issues. 6. Prescriptions: Will call when needed. 7. Prescriptions will not be filled unless you are compliant with follow up appointments or have a follow up appointment scheduled as ordered by your provider. Refills should be requested at the time of your visit. Nov, Dietary counseling and surveillance (ICD-10 - Z71.3) see above Nov, Current use of insulin (ICD-10 - Z79.4) Nov, Insulin pump titration (ICD-10 - Z46.81) Tandem control iq insulin pump with dexcom g6 Basal MN 0.89 changed to 0.86 units/hr (TBI 20.64 units/day) ICR MN 1:13 ISF MN 1:45 Target 110 active insulin time 5 hours Updated weight/tdi in control iq Nov, BMI 28.0-28.9,adult (ICD-10 - Z68.28) 6 pound weight loss from last visit, continue with weight loss efforts. Nov, Other Sick Day Lemuel n 1. Consider a site malfunction and urgent site change immediately throughout the sick day plan. Also, consider insulin by injection at any time in this plan if you feel the pump site is not working well. 2. If blood glucose > 300 check for ketones. a. Small ketones: give correction with the pump, drink 8-12 ounces no sugar drink every 30-60 minutes until glucose control regained. b. Moderate/Large ketones: if glucose 250-400 inject fast acting insulin 15% of your total daily dose by injection. Drink 16 ounces of no sugar drink then 8-12 ounces every 30 minutes even if you are not thirsty until glucose control is regained; may use diluted Gatorade. Recheck blood glucose every 2-3 hours. 3. Once blood glucose <200 drink fluids like regular sweetened Gatorade to avoid low glucose and to speed up fall in ketones. 4. If vomiting begins and ketones are large either call 911 or have someone take you the Emergency Department. [facility] Other 03-29-2023 Evaluation note* Encounter Date Diagnosis Assessment Notes Treatment Notes Treatment Clinical Notes May, Dysuria (ICD-10 - R30.0) May, Urinary tract infection without hematuria, site unspecified (ICD-10 - N39.0) Urinary tract infection (UTI) home care material was printed Drink plenty fluids, get plenty of rest. Continue home medications as prescribed. Take the Cipro and Pyridium as prescribed until gone. Take the Diflucan as prescribed. Follow-up with your family physician if no improvement in 2 to 3 days. May, History of candidiasis of vagina (ICD-10 - Z86.19) May, History of diabetes mellitus (ICD-10 - Z86.39) [facility] Other 03-09-2023 Evaluation note* Encounter Date Diagnosis Assessment Notes Treatment Notes Treatment Clinical Notes May, Obesity (BMI 30.0-34.9) (ICD-10 - E66.9) [facility] Other 03-02-2023 Evaluation note* Encounter Date Diagnosis Assessment Notes Treatment Notes Treatment Clinical Notes May, Type 1 diabetes mellitus (ICD-10 - E10.9) Discussion of carb quality, carb consistent meals. Reviewed glycemic index. Discussed planning for exercise with prefueling and glucose source available, avoidance of nonroutine or escalation of exercise alone. Discussed that exercise impact can last 12 to 18 hours and cause reduction in blood sugars exceeding time of actual exercise. Call Tondra/diabetic educators or myself with any glycemic excursions or changes in blood sugar patterns. May, Obesity (BMI 30.0-34.9) (ICD-10 - E66.9) Ozempic to assist with satiety, decreased food reward, insulin resistance. We discussed that this is off label for type 1 diabetes. She states understanding. We did sample her today 2.0 mg pen, instructions on how to titrate to .75 and 1.0 mg dosing. Rx will be 1.0 mg pen. She states understanding. She call office if she has any issues tolerating medication-------- Discussed alcohol and its lack of nutritive calories. Also discussed alcohol and its effect on liver and concern for hypoglycemic response May, Current use of insulin (ICD-10 - Z79.4) Discussed carb consistency and quality to mitigate weight gain with insulin usage May, Hypertension, unspecified type (ICD-10 - I10) We discussed that the AHA recommends no more than 2,300 mg a daily as an ideal limit, but no more than 1,500 mg daily for most adults, especially those with HTN. Soduim intake below 1,000 mg per day can further improve blood pressure and heart health. Expect improvement in blood pressure with weight loss May, Hyperlipidemia, unspecified hyperlipidemia type (ICD-10 - E78.5) Expect improvement in lipid profile with food choices and weight loss May, Depression (ICD-10 - F32.9) Trial of bupropion. Consideration mental health to assure proper goal setting and strategies for success May, Other I have spent 30 minutes with this patient and over 50% of the visit was counseling done by myself, Jessa VASQUEZ. [facility] Other 01-10-2023 Evaluation note* Encounter Date Diagnosis Assessment Notes Treatment Notes Treatment Clinical Notes Mar, Type 1 diabetes mellitus (ICD-10 - E10.9) Discussion of carb quality, carb consistent meals. Reviewed glycemic index. Discussed planning for exercise with prefueling and glucose source available, avoidance of nonroutine or escalation of exercise alone. Discussed that exercise impact can last 12 to 18 hours and cause reduction in blood sugars exceeding time of actual exercise. Call Tondra/diabetic educators or myself with any glycemic excursions or changes in blood sugar patterns. Mar, Obesity (BMI 30.0-34.9) (ICD-10 - E66.9) Ozempic to assist with satiety, decreased food reward, insulin resistance. We discussed that this is off label for type 1 diabetes. She states understanding. We did sample her today 2.0 mg pen, instructions on how to titrate to .75 and 1.0 mg dosing. Rx will be 1.0 mg pen. She states understanding. She call office if she has any issues tolerating medication-------- Discussed alcohol and its lack of nutritive calories. Also discussed alcohol and its effect on liver and concern for hypoglycemic response Mar, Current use of insulin (ICD-10 - Z79.4) Discussed carb consistency and quality to mitigate weight gain with insulin usage Mar, Hypertension, unspecified type (ICD-10 - I10) We discussed that the AHA recommends no more than 2,300 mg a daily as an ideal limit, but no more than 1,500 mg daily for most adults, especially those with HTN. Soduim intake below 1,000 mg per day can further improve blood pressure and heart health. Expect improvement in blood pressure with weight loss Mar, Hyperlipidemia, unspecified hyperlipidemia type (ICD-10 - E78.5) Expect improvement in lipid profile with food choices and weight loss Mar, Depression (ICD-10 - F32.9) Trial of bupropion. Consideration mental health to assure proper goal setting and strategies for success Mar, Other I have spent 30 minutes with this patient and over 50% of the visit was counseling done by myself, Jessa VASQUEZ. [facility] Other 2022 Evaluation note* Encounter Date Diagnosis Assessment Notes Treatment Notes Treatment Clinical Notes Jan, Hyperlipidemia, unspecified hyperlipidemia type (ICD-10 - E78.5) 10/2021 ldl 64 at target on statin Jan, Type 1 diabetes mellitus (ICD-10 - E10.9) 1. Controlled, a Type 1 diabetes with A1c of 6.4% 2. Blood glucose levels improved. According to dexcom g6 download 02/19/2022-02/26/20 22: Avg glucose 157. >180- 30%, 70-180-70%, <70-0%. Reviewed download with pt, basal slightly higher; however, was over holdiay week, no changes to current pump settings. Pt met with weight management and will be increasing ozempic from 1mg to 2mg. Pt would like to stop metformin c-petide was 0.3 11/19. Reviewed with pt use of exercise feature 1 hour before increased activity to reduce risk of hypoglycemia. Pt verbalizes understanding. 3. Patient is alert, oriented and receptive to making changes or counseling. Notes: Seen for an assessment of current glucose pattern, changes in treatment plan, counseling and coordination of care related to diabetes, risks, and benefits of treatment, medications, side effects. Given handouts to reinforce concepts reviewed during counseling, see scanned notes. TOPICS REVIEWED: 1. Time was spent reviewing: a. Basic concepts of diabetes, progressive beta cell , concepts of basal/bolus/correct carol ann insulin requirements. Basal: The goal is fasting blood glucose of 90-130mg. IF fasting blood glucose starts to run under 100mg 3x's/ week, decrease dose by 10% b. Nutrition: Concepts of healthy diet, encouraged to decrease saturated fat in diet and increase non-starchy vegetables and fruits in diet. BMI: Pt. needs to select one small change to decrease caloric intake or increase physical activity to help decrease weight. c. Correct treatment of hypoglycemia, carry a glucose source at all times on your person, in vehicles, and at bedside. Can use glucose tablets/4, four ounces of pop or juice equal to 15 G of carbohydrate. Blood glucose should be 100 mg/dl or higher when driving. d. ADA glucose goals for age and medical complexity reviewed e. Patient questions addressed 2. Activity/exercise: Encouraged to start any form of physical activity. Start low level and increase slowly to a minimal goal of 150 minutes/week. Limit activity to what is allowed by other issues such as cardiac, pulmonary or orthopedic restrictions. 3. Standards of care: Reminded to have an annual dilated eye exam, A1C every 3 months, urine testing for microalbumin once/year, check feet daily and report any cuts or sores that do not appear to be healing. 4. Meter: Plan to check blood glucose: Please check blood glucose levels 4 times/day. Back to back meals reveal effectiveness of bolus dosing. 5. [facility]. Contact office if any issues or concerns with patterns of hypoglycemia, hyperglycemia, or diabetes medication issues. 6. Prescriptions: [facility] [employer]. Will call when needed. Back up instructions if insulin pump fails; tresiba 20 units sq once daily if off of insulin pump, must wait 24 hours after last dose of tresiba before restarting insulin pump. Written instructions reviewed. 7. Prescriptions will not be filled unless you are compliant with follow up appointments or have a follow up appointment scheduled as ordered by your provider. Refills should be requested at the time of your visit. Jan, Dietary counseling and surveillance (ICD-10 - Z71.3) see above Jan, Vitamin B 12 deficiency (ICD-10 - E53.8) 10/2021 vit b 12 454 at target Jan, Current use of insulin (ICD-10 - Z79.4) Jan, BMI 30.0-30.9,adult (ICD-10 - Z68.30) 2 pound weight loss from last visit, continue with weight loss efforts. Jan, Insulin pump in place (ICD-10 - Z96.41) Tandem control iq insulin pump with dexcom g6 Basal MN 0.87 units/hr (TBI 15.1 units/day) ICR MN 1:15 ISF MN 1:50 Target 110 active insulin time 5 hours Max bolus 20 unit Basal limit 3 units/hr Jan, Other Sick Day Lemuel n 1. Consider a site malfunction and urgent site change immediately throughout the sick day plan. Also, consider insulin by injection at any time in this plan if you feel the pump site is not working well. 2. If blood glucose > 300 check for ketones. a. Small ketones: give correction with the pump, drink 8-12 ounces no sugar drink every 30-60 minutes until glucose control regained. b. Moderate/Large ketones: if glucose 250-400 inject fast acting insulin 15% of your total daily dose by injection. Drink 16 ounces of no sugar drink then 8-12 ounces every 30 minutes even if you are not thirsty until glucose control is regained; may use diluted Gatorade. Recheck blood glucose every 2-3 hours. 3. Once blood glucose <200 drink fluids like regular sweetened Gatorade to avoid low glucose and to speed up fall in ketones. 4. If vomiting begins and ketones are large either call 911 or have someone take you the Emergency Department. [facility] Other 11-10-2022 Evaluation note* Encounter Date Diagnosis Assessment Notes Treatment Notes Treatment Clinical Notes Jan, Obesity (ICD-10 - E66.9) Jan, BMI 30.0-30.9,adult (ICD-10 - Z68.30) Jan, Other Summary of Visi t: (A) plate method reviewed (B) discussed tips for easy lunches, meal timing and mindfulness of snacking (C) reviewed benefits of carb foods and choosing high fiber choices (D) encouraged practical sustainable changes Patient set the following goals: - continue to increase veggie intake - be mindful of evening snacks [facility] Other 10-12-2022 Evaluation note* Encounter Date Diagnosis Assessment Notes Treatment Notes Treatment Clinical Notes Dec, Type 1 diabetes mellitus (ICD-10 - E10.9) Discussion of carb quality, carb consistent meals. Reviewed glycemic index. Discussed planning for exercise with prefueling and glucose source available, avoidance of nonroutine or escalation of exercise alone. Discussed that exercise impact can last 12 to 18 hours and cause reduction in blood sugars exceeding time of actual exercise. Call Tondra/diabetic educators or myself with any glycemic excursions or changes in blood sugar patterns. Dec, Obesity (BMI 30.0-34.9) (ICD-10 - E66.9) Ozempic to assist with satiety, decreased food reward, insulin resistance. We discussed that this is off label for type 1 diabetes. She states understanding. We did sample her today 2.0 mg pen, instructions on how to titrate to .75 and 1.0 mg dosing. Rx will be 1.0 mg pen. She states understanding. She call office if she has any issues tolerating medication-------- Discussed alcohol and its lack of nutritive calories. Also discussed alcohol and its effect on liver and concern for hypoglycemic response Dec, Current use of insulin (ICD-10 - Z79.4) Discussed carb consistency and quality to mitigate weight gain with insulin usage Dec, Hypertension, unspecified type (ICD-10 - I10) We discussed that the AHA recommends no more than 2,300 mg a daily as an ideal limit, but no more than 1,500 mg daily for most adults, especially those with HTN. Soduim intake below 1,000 mg per day can further improve blood pressure and heart health. Expect improvement in blood pressure with weight loss Dec, Hyperlipidemia, unspecified hyperlipidemia type (ICD-10 - E78.5) Expect improvement in lipid profile with food choices and weight loss Dec, Other I have spent 30 minutes with this patient and over 50% of the visit was counseling done by myself, Jessa VASQUEZ. [facility] Other 08-31-2022 Evaluation note* Encounter Date Diagnosis Assessment Notes Treatment Notes Treatment Clinical Notes Oct, Type 1 diabetes mellitus (ICD-10 - E10.9) Discussion of carb quality, carb consistent meals. Reviewed glycemic index. Discussed planning for exercise with prefueling and glucose source available, avoidance of nonroutine or escalation of exercise alone. Discussed that exercise impact can last 12 to 18 hours and cause reduction in blood sugars exceeding time of actual exercise. Call Tondra/diabetic educators or myself with any glycemic excursions or changes in blood sugar patterns. Oct, Obesity (BMI 30.0-34.9) (ICD-10 - E66.9) Ozempic to assist with satiety, decreased food reward, insulin resistance. We discussed that this is off label for type 1 diabetes. She states understanding. We did sample her today 2.0 mg pen, instructions on how to titrate to .75 and 1.0 mg dosing. Rx will be 1.0 mg pen. She states understanding. She call office if she has any issues tolerating medication-------- Discussed alcohol and its lack of nutritive calories. Also discussed alcohol and its effect on liver and concern for hypoglycemic response Oct, Current use of insulin (ICD-10 - Z79.4) Discussed carb consistency and quality to mitigate weight gain with insulin usage Oct, Hypertension, unspecified type (ICD-10 - I10) We discussed that the AHA recommends no more than 2,300 mg a daily as an ideal limit, but no more than 1,500 mg daily for most adults, especially those with HTN. Soduim intake below 1,000 mg per day can further improve blood pressure and heart health. Expect improvement in blood pressure with weight loss Oct, Hyperlipidemia, unspecified hyperlipidemia type (ICD-10 - E78.5) Expect improvement in lipid profile with food choices and weight loss Oct, Other I have spent 30 minutes with this patient and over 50% of the visit was counseling done by myself, Jessa VASQUEZ. [facility] Other 08-17-2022 Evaluation note* Encounter Date Diagnosis Assessment Notes Treatment Notes Treatment Clinical Notes Oct, Hyperlipidemia, unspecified hyperlipidemia type (ICD-10 - E78.5) 10/2021 ldl 64 at target on statin Oct, Type 1 diabetes mellitus (ICD-10 - E10.9) 1. Controlled, a Type 1 diabetes with A1c of 6.5% 2. Blood glucose levels improved. According to dexcom g6 download 10/31/2021-11/13/2021: Avg glucose 161. >180- 27%, 70-180-73%, <70-0%. Reviewed download with pt, basal tdi 20.95 will modify basal settings-see below. Isolated incidence of hypoglycemia from increased physical activity- recommend turning on exercise feature 1 hour before exercise to reduce incidence of hypoglycemia. c-peptide 11/19 0.3 reviewed with pt if c-peptide <.1 may consider stopping metformin. She verbalizes understanding. 3. Patient is alert, oriented and receptive to making changes or counseling. Notes: Seen for an assessment of current glucose pattern, changes in treatment plan, counseling and coordination of care related to diabetes, risks, and benefits of treatment, medications, side effects. Given handouts to reinforce concepts reviewed during counseling, see scanned notes. TOPICS REVIEWED: 1. Time was spent reviewing: a. Basic concepts of diabetes, progressive beta cell , concepts of basal/bolus/correct carol ann insulin requirements. Basal: The goal is fasting blood glucose of 90-130mg. IF fasting blood glucose starts to run under 100mg 3x's/ week, decrease dose by 10% b. Nutrition: Concepts of healthy diet, encouraged to decrease saturated fat in diet and increase non-starchy vegetables and fruits in diet. BMI: Pt. needs to select one small change to decrease caloric intake or increase physical activity to help decrease weight. c. Correct treatment of hypoglycemia, carry a glucose source at all times on your person, in vehicles, and at bedside. Can use glucose tablets/4, four ounces of pop or juice equal to 15 G of carbohydrate. Blood glucose should be 100 mg/dl or higher when driving. d. ADA glucose goals for age and medical complexity reviewed e. Patient questions addressed 2. Activity/exercise: Encouraged to start any form of physical activity. Start low level and increase slowly to a minimal goal of 150 minutes/week. Limit activity to what is allowed by other issues such as cardiac, pulmonary or orthopedic restrictions. 3. Standards of care: Reminded to have an annual dilated eye exam, A1C every 3 months, urine testing for microalbumin once/year, check feet daily and report any cuts or sores that do not appear to be healing. 4. Meter: Plan to check blood glucose: Please check blood glucose levels 4 times/day. Back to back meals reveal effectiveness of bolus dosing. 5. [facility]. Contact office if any issues or concerns with patterns of hypoglycemia, hyperglycemia, or diabetes medication issues. 6. Prescriptions: None needed. back up instructions if insulin pump fails; tresiba 20 units sq once daily if off of insulin pump, must wait 24 hours after last dose of tresiba before restarting insulin pump. Oct, Dietary counseling and surveillance (ICD-10 - Z71.3) see above Oct, Vitamin B 12 deficiency (ICD-10 - E53.8) 10/2021 vit b 12 454 at target Oct, Current use of insulin (ICD-10 - Z79.4) Oct, Insulin pump titration (ICD-10 - Z46.81) Tandem control iq insulin pump with dexcom g6 Basal MN 0.78 changed to 0.87 units/hr (TBI 15.1 units/day) ICR MN 1:15 ISF MN 1:50 Target 110 active insulin time 5 hours Max bolus 20 unit Basal limit 3 units/hr Oct, BMI 30.0-30.9,adult (ICD-10 - Z68.30) 1 pound weight loss from last visit, continue with weight loss efforts. Oct, Other Sick Day Lemuel n 1. Consider a site malfunction and urgent site change immediately throughout the sick day plan. Also, consider insulin by injection at any time in this plan if you feel the pump site is not working well. 2. If blood glucose > 300 check for ketones. a. Small ketones: give correction with the pump, drink 8-12 ounces no sugar drink every 30-60 minutes until glucose control regained. b. Moderate/Large ketones: if glucose 250-400 inject fast acting insulin 15% of your total daily dose by injection. Drink 16 ounces of no sugar drink then 8-12 ounces every 30 minutes even if you are not thirsty until glucose control is regained; may use diluted Gatorade. Recheck blood glucose every 2-3 hours. 3. Once blood glucose <200 drink fluids like regular sweetened Gatorade to avoid low glucose and to speed up fall in ketones. 4. If vomiting begins and ketones are large either call 911 or have someone take you the Emergency Department. [facility] Other 07-26-2022 Evaluation note* Encounter Date Diagnosis Assessment Notes Treatment Notes Treatment Clinical Notes Sep, Type 1 diabetes mellitus (ICD-10 - E10.9) Discussion of carb quality, carb consistent meals. Reviewed glycemic index. Discussed planning for exercise with prefueling and glucose source available, avoidance of nonroutine or escalation of exercise alone. Discussed that exercise impact can last 12 to 18 hours and cause reduction in blood sugars exceeding time of actual exercise. Call Katie/diabetic educators or myself with any glycemic excursions or changes in blood sugar patterns. Sep, Obesity (BMI 30.0-34.9) (ICD-10 - E66.9) Ozempic to assist with satiety, decreased food reward, insulin resistance. We discussed that this is off label for type 1 diabetes. She states understanding. We did sample her today 2.0 mg pen, instructions on how to titrate to .75 and 1.0 mg dosing. Rx will be 1.0 mg pen. She states understanding. She call office if she has any issues tolerating medication-------- Discussed alcohol and its lack of nutritive calories. Also discussed alcohol and its effect on liver and concern for hypoglycemic response Sep, Current use of insulin (ICD-10 - Z79.4) Discussed carb consistency and quality to mitigate weight gain with insulin usage Sep, Hypertension, unspecified type (ICD-10 - I10) We discussed that the AHA recommends no more than 2,300 mg a daily as an ideal limit, but no more than 1,500 mg daily for most adults, especially those with HTN. Soduim intake below 1,000 mg per day can further improve blood pressure and heart health. Expect improvement in blood pressure with weight loss Sep, Hyperlipidemia, unspecified hyperlipidemia type (ICD-10 - E78.5) Expect improvement in lipid profile with food choices and weight loss Sep, Other I have spent 30 minutes with this patient and over 50% of the visit was counseling done by myself, Jessa VASQUEZ. [facility] Other 06-14-2022 Evaluation note* Encounter Date Diagnosis Assessment Notes Treatment Notes Treatment Clinical Notes Aug, Type 1 diabetes mellitus (ICD-10 - E10.9) Discussion of carb quality, carb consistent meals. Reviewed glycemic index. Discussed planning for exercise with prefueling and glucose source available, avoidance of nonroutine or escalation of exercise alone. Discussed that exercise impact can last 12 to 18 hours and cause reduction in blood sugars exceeding time of actual exercise. Call Tondra/diabetic educators or myself with any glycemic excursions or changes in blood sugar patterns. Aug, Obesity (BMI 30.0-34.9) (ICD-10 - E66.9) Ozempic to assist with satiety, decreased food reward, insulin resistance. We discussed that this is off label for type 1 diabetes. She states understanding. We did sample her today and she appropriately demonstrated dosing with 0.25 mg subcu to her left abdomen. She is able to articulate that this will be a once weekly medication if toleration in 4 weeks we will escalate to 0.5 mg. She call office if she has any issues tolerating medication -------- Discussed alcohol and its lack of nutritive calories. Also discussed alcohol and its effect on liver and concern for hypoglycemic response New patient questionnaire reviewed in full, assessment of sleep, depression and exercise. Plan, purchase and prepare healthy foods. Use shopping list, electronic shopping to curb impulse buying. Stock pantry with healthy foods. Keep fruits and vegetables accessible. Avoid bringing unhealthy foods in to the home. Plan family meals minimally 3 x per week. Decrease screen time. Aug, Current use of insulin (ICD-10 - Z79.4) Discussed carb consistency and quality to mitigate weight gain with insulin usage Aug, Hypertension, unspecified type (ICD-10 - I10) We discussed that the AHA recommends no more than 2,300 mg a daily as an ideal limit, but no more than 1,500 mg daily for most adults, especially those with HTN. Soduim intake below 1,000 mg per day can further improve blood pressure and heart health. Expect improvement in blood pressure with weight loss Aug, Hyperlipidemia, unspecified hyperlipidemia type (ICD-10 - E78.5) Expect improvement in lipid profile with food choices and weight loss Aug, Other I have spent 30 minutes with this patient and over 50% of the visit was counseling done by myself, Jessa VASQUEZ. [facility] Other 05-17-2022 Evaluation note* Encounter Date Diagnosis Assessment Notes Treatment Notes Treatment Clinical Notes July, Hyperlipidemia, unspecified hyperlipidemia type (ICD-10 - E78.5) 05/2021 ldl 76 at target on statin July, Type 1 diabetes mellitus (ICD-10 - E10.9) 1. Uncontrolled, a Type 1 diabetes with A1c of 7.1% 2. Blood glucose levels slightly higher than last visit. According to dexcom g6 download 07/31/2021-08/13/2021: Avg glucose 171. >180- 31%, 70-180-69%, <70-0%. Reviewed download with pt, isolated incident of hypoglcyemia; avg basal dose higher than last visit- modified basal settings- see below. Concern that vision got better but seemed to get a little worse after starting ozempic. Last visit with eye Dr December. Recommend she f/u with eye , r/o retinopathy. If no signs of retinopathy she may increase ozempic to 0.5mg once weekly. 3. Patient is alert, oriented and receptive to making changes or counseling. Notes: Seen for an assessment of current glucose pattern, changes in treatment plan, counseling and coordination of care related to diabetes, risks, and benefits of treatment, medications, side effects. Given handouts to reinforce concepts reviewed during counseling, see scanned notes. TOPICS REVIEWED: 1. Time was spent reviewing: a. Basic concepts of diabetes, progressive beta cell , concepts of basal/bolus/correct carol ann insulin requirements. Basal: The goal is fasting blood glucose of 90-130mg. IF fasting blood glucose starts to run under 100mg 3x's/ week, decrease dose by 10% b. Nutrition: Concepts of healthy diet, encouraged to decrease saturated fat in diet and increase non-starchy vegetables and fruits in diet. BMI: Pt. needs to select one small change to decrease caloric intake or increase physical activity to help decrease weight. c. Correct treatment of hypoglycemia, carry a glucose source at all times on your person, in vehicles, and at bedside. Can use glucose tablets/4, four ounces of pop or juice equal to 15 G of carbohydrate. Blood glucose should be 100 mg/dl or higher when driving. d. ADA glucose goals for age and medical complexity reviewed e. Patient questions addressed 2. Activity/exercise: Encouraged to start any form of physical activity. Start low level and increase slowly to a minimal goal of 150 minutes/week. Limit activity to what is allowed by other issues such as cardiac, pulmonary or orthopedic restrictions. 3. Standards of care: Reminded to have an annual dilated eye exam, A1C every 3 months, urine testing for microalbumin once/year, check feet daily and report any cuts or sores that do not appear to be healing. 4. Meter: Plan to check blood glucose: Please check blood glucose levels 4 times/day. Back to back meals reveal effectiveness of bolus dosing. 5. [facility] Contact office if any issues or concerns with patterns of hypoglycemia, hyperglycemia, or diabetes medication issues. 6. Prescriptions: None needed. back up instructions if insulin pump fails; tresiba 18 units sq once daily if off of insulin pump, must wait 24 hours after last dose of tresiba before restarting insulin pump. July, Dietary counseling and surveillance (ICD-10 - Z71.3) see above July, Vitamin B 12 deficiency (ICD-10 - E53.8) 11/2020 vit b 12 537 at target July, Current use of insulin (ICD-10 - Z79.4) July, Insulin pump titration (ICD-10 - Z46.81) Tandem control iq insulin pump with dexcom g6 Basal MN 0.63 changed to 0.78 units/hr (TBI 15.1 units/day) ICR MN 1:15 ISF MN 1:50 Target 110 active insulin time 5 hours Max bolus 20 unit Basal limit 3 units/hr July, BMI 30.0-30.9,adult (ICD-10 - Z68.30) 5 pound weight loss from last visit, continue with weight loss efforts. [facility] Other 05-03-2022 Evaluation note* Encounter Date Diagnosis Assessment Notes Treatment Notes Treatment Clinical Notes July, Type 1 diabetes mellitus (ICD-10 - E10.9) Discussion of carb quality, carb consistent meals. Reviewed glycemic index. Discussed planning for exercise with prefueling and glucose source available, avoidance of nonroutine or escalation of exercise alone. Discussed that exercise impact can last 12 to 18 hours and cause reduction in blood sugars exceeding time of actual exercise. Call Tondra/diabetic educators or myself with any glycemic excursions or changes in blood sugar patterns. July, Obesity (BMI 30.0-34.9) (ICD-10 - E66.9) Ozempic to assist with satiety, decreased food reward, insulin resistance. We discussed that this is off label for type 1 diabetes. She states understanding. We did sample her today and she appropriately demonstrated dosing with 0.25 mg subcu to her left abdomen. She is able to articulate that this will be a once weekly medication if toleration in 4 weeks we will escalate to 0.5 mg. She call office if she has any issues tolerating medication -------- Discussed alcohol and its lack of nutritive calories. Also discussed alcohol and its effect on liver and concern for hypoglycemic response New patient questionnaire reviewed in full, assessment of sleep, depression and exercise. Plan, purchase and prepare healthy foods. Use shopping list, electronic shopping to curb impulse buying. Stock pantry with healthy foods. Keep fruits and vegetables accessible. Avoid bringing unhealthy foods in to the home. Plan family meals minimally 3 x per week. Decrease screen time. July, Current use of insulin (ICD-10 - Z79.4) Discussed carb consistency and quality to mitigate weight gain with insulin usage July, Hypertension, unspecified type (ICD-10 - I10) We discussed that the AHA recommends no more than 2,300 mg a daily as an ideal limit, but no more than 1,500 mg daily for most adults, especially those with HTN. Soduim intake below 1,000 mg per day can further improve blood pressure and heart health. Expect improvement in blood pressure with weight loss July, Hyperlipidemia, unspecified hyperlipidemia type (ICD-10 - E78.5) Expect improvement in lipid profile with food choices and weight loss July, Other I have spent 30 minutes with this patient and over 50% of the visit was counseling done by myself, Jessa VASQUEZ. [facility] Other 03-31-2022 Evaluation note* Encounter Date Diagnosis Assessment Notes Treatment Notes Treatment Clinical Notes May, Type 1 diabetes mellitus (ICD-10 - E10.9) Discussion of carb quality, carb consistent meals. Reviewed glycemic index. Discussed planning for exercise with prefueling and glucose source available, avoidance of nonroutine or escalation of exercise alone. Discussed that exercise impact can last 12 to 18 hours and cause reduction in blood sugars exceeding time of actual exercise. Call Tondra/diabetic educators or myself with any glycemic excursions or changes in blood sugar patterns. May, Obesity (BMI 30.0-34.9) (ICD-10 - E66.9) Ozempic to assist with satiety, decreased food reward, insulin resistance. We discussed that this is off label for type 1 diabetes. She states understanding. We did sample her today and she appropriately demonstrated dosing with 0.25 mg subcu to her left abdomen. She is able to articulate that this will be a once weekly medication if toleration in 4 weeks we will escalate to 0.5 mg. She call office if she has any issues tolerating medication -------- Discussed alcohol and its lack of nutritive calories. Also discussed alcohol and its effect on liver and concern for hypoglycemic response New patient questionnaire reviewed in full, assessment of sleep, depression and exercise. Plan, purchase and prepare healthy foods. Use shopping list, [facility] shopping to curb impulse buying. Stock pantry with healthy foods. Keep fruits and vegetables accessible. Avoid bringing unhealthy foods in to the home. Plan family meals minimally 3 x per week. Decrease screen time. May, Current use of insulin (ICD-10 - Z79.4) Discussed carb consistency and quality to mitigate weight gain with insulin usage May, Hypertension, unspecified type (ICD-10 - I10) We discussed that the AHA recommends no more than 2,300 mg a daily as an ideal limit, but no more than 1,500 mg daily for most adults, especially those with HTN. Soduim intake below 1,000 mg per day can further improve blood pressure and heart health. Expect improvement in blood pressure with weight loss May, Hyperlipidemia, unspecified hyperlipidemia type (ICD-10 - E78.5) Expect improvement in lipid profile with food choices and weight loss May, Other I have spent 60 minutes with this patient and over 50% of the visit was counseling done by myself, Jessa VASQUEZ. [facility] Other 02-07-2022 Evaluation note* Encounter Date Diagnosis Assessment Notes Treatment Notes Treatment Clinical Notes May, Encounter for immunization (ICD-10 - Z23) Patient presents for COVID-19 vaccination BOOSTER. Pre-screening form answers evaluated with patient. Patient denies current illness or allergic reaction to component of COVID-19 vaccine. Patient provided with current copy of EUA. [facility] Other 02-07-2022 Evaluation note* Encounter Date Diagnosis Assessment Notes Treatment Notes Treatment Clinical Notes May, Hyperlipidemia, unspecified hyperlipidemia type (ICD-10 - E78.5) 11/2020 ldl 212 trig 154- on statin. Pt had labs completed this morning, awaiting results May, Type 1 diabetes mellitus (ICD-10 - E10.9) 1. Controlled, a Type 1 diabetes with A1c of 6.5% 2. Blood glucose levels improved from visit on 11/2020 a1c >14%. According to dexcom g6 download 04/24/2021-05/06/2021: Avg glucose 156. >180-19.2%, 70-180-81%, <70-0%. Reviewed download with pt, isolated incident of hypoglcyemia after increased physical activity. Reviewed with pt recommend setting exercise feature 1 hour before activity to prevent hypoglcyemia. Pt had made adjustment to max basal delivery and max insulin dose delivery, these settings were changed today. See below. 3. Patient is alert, oriented and receptive to making changes or counseling. Notes: Seen for an assessment of current glucose pattern, changes in treatment plan, counseling and coordination of care related to diabetes, risks, and benefits of treatment, medications, side effects. Given handouts to reinforce concepts reviewed during counseling, see scanned notes. TOPICS REVIEWED: 1. Time was spent reviewing: a. Basic concepts of diabetes, progressive beta cell , concepts of basal/bolus/correct carol ann insulin requirements. Basal: The goal is fasting blood glucose of 90-130mg. IF fasting blood glucose starts to run under 100mg 3x's/ week, decrease dose by 10% b. Nutrition: Concepts of healthy diet, encouraged to decrease saturated fat in diet and increase non-starchy vegetables and fruits in diet. BMI: Pt. needs to select one small change to decrease caloric intake or increase physical activity to help decrease weight. c. Correct treatment of hypoglycemia, carry a glucose source at all times on your person, in vehicles, and at bedside. Can use glucose tablets/4, four ounces of pop or juice equal to 15 G of carbohydrate. Blood glucose should be 100 mg/dl or higher when driving. d. ADA glucose goals for age and medical complexity reviewed e. Patient questions addressed 2. Activity/exercise: Encouraged to start any form of physical activity. Start low level and increase slowly to a minimal goal of 150 minutes/week. Limit activity to what is allowed by other issues such as cardiac, pulmonary or orthopedic restrictions. 3. Standards of care: Reminded to have an annual dilated eye exam, A1C every 3 months, urine testing for microalbumin once/year, check feet daily and report any cuts or sores that do not appear to be healing. 4. Meter: Plan to check blood glucose: Please check blood glucose levels 4 times/day. Back to back meals reveal effectiveness of bolus dosing. 5. [facility]. Contact office if any issues or concerns with patterns of hypoglycemia, hyperglycemia, or diabetes medication issues. 6. Prescriptions: Sample tresiba u100 x1 pen with pen needles given for back up with instructions if insulin pump fails; tresiba 15 units sq once daily if off of insulin pump, must wait 24 hours after last dose of tresiba before restarting insulin pump. 7. Ximena was given her user name for [employer]. She has the ja on her phone. She is going to reset her password. May, Dietary counseling and surveillance (ICD-10 - Z71.3) see above May, Vitamin B 12 deficiency (ICD-10 - E53.8) 11/2020 vit b 12 537 at target May, Current use of insulin (ICD-10 - Z79.4) May, BMI 31.0-31.9,adult (ICD-10 - Z68.31) Referral to Dr. Gonzalez May, Insulin pump titration (ICD-10 - Z46.81) Tandem control iq insulin pump with dexcom g6 Basal MN 0.63 units/hr (TBI 15.1 units/day) ICR MN 1:15 ISF MN 1:50 Target 110 active insulin time 5 hours Max bolus 17 changed to 20 unit Basal limit 6 units/hr changed to 3 units/hr [facility] Other 11-11-2021 Evaluation note* Encounter Date Diagnosis Assessment Notes Treatment Notes Treatment Clinical Notes Jan, Other Summary of Visit: (A) reviewed types of carbs, food sources and effect on BG (B) discussed plate method of meal planning for healthy eating (C) reviewed tips for taking insulin, counting carbs and further online resources Patient set the following goals: [facility] Other 11-01-2021 Evaluation note* Encounter Date Diagnosis Assessment Notes Treatment Notes Treatment Clinical Notes Jan, Hyperlipidemia, unspecified hyperlipidemia type (ICD-10 - E78.5) 11/2020 ldl 212 trig 154- on statin. Recheck labs Jan, Type 1 diabetes mellitus (ICD-10 - E10.9) 1. Uncontrolled, a Type 1 diabetes with A1c of >14% 12/18/2020 2. Blood glucose levels improved. 12/18/2020 nicholas 65 25.1, c-peptide 0.9 fasting glucose 262 indicates Type 1 DM. According to dexcom g6 download 01/16/2021- 1: Avg glucose 166. >250-8.6%, >180-31.2%, 70-180-68.8%, <70-0%, <54-0%. CV 35.1%. SD 58. 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 Pt also with concern of having low blood sugars while at work d/t increased physical activity. Encouraged to keep snack on hand with 15 grams of carb to eat if glucose <70. Day to day variations in work schedule, mealtimes and activity level, which confound the degree of regimentation required to self-manage glycemia with multiple insulin injections, recommend Sensor augmented insulin delivery system. We discussed different options of insulin pumps AID systems available with tube and non aid without tube. She is interested in tandem control iq insulin pump, she is agreeable to environmental marketing representative reaching out to her. 3. Patient is alert, oriented and receptive to making changes or counseling. Notes: Seen for an assessment of current glucose pattern, changes in treatment plan, counseling and coordination of care related to diabetes, risks, and benefits of treatment, medications, side effects. Given handouts to reinforce concepts reviewed during counseling, see scanned notes. TOPICS REVIEWED: 1. Time was spent reviewing: a. Basic concepts of diabetes, progressive beta cell , concepts of basal/bolus/correct carol ann insulin requirements. Basal: The goal is fasting blood glucose of 90-130mg. IF fasting blood glucose starts to run under 100mg 3x's/ week, decrease dose by 10% b. Nutrition: Concepts of healthy diet, encouraged to decrease saturated fat in diet and increase non-starchy vegetables and fruits in diet. BMI: Pt. needs to select one small change to decrease caloric intake or increase physical activity to help decrease weight. c. Correct treatment of hypoglycemia, carry a glucose source at all times on your person, in vehicles, and at bedside. Can use glucose tablets/4, four ounces of pop or juice equal to 15 G of carbohydrate. Blood glucose should be 100 mg/dl or higher when driving. d. ADA glucose goals for age and medical complexity reviewed e. Patient questions addressed 2. Activity/exercise: Encouraged to start any form of physical activity. Start low level and increase slowly to a minimal goal of 150 minutes/week. Limit activity to what is allowed by other issues such as cardiac, pulmonary or orthopedic restrictions. 3. Standards of care: Reminded to have an annual dilated eye exam, A1C every 3 months, urine testing for microalbumin once/year, check feet daily and report any cuts or sores that do not appear to be healing. 4. Meter: Plan to check blood glucose: Please check blood glucose levels 4 times/day. Back to back meals reveal effectiveness of bolus dosing. 5. [facility] 1 [facility]. Contact office if any issues or concerns with patterns of hypoglycemia, hyperglycemia, or diabetes medication issues. 6. Prescriptions: Metformin, fiasp, rosuvastatin sent to [facility]. Jan, Dietary counseling and surveillance (ICD-10 - Z71.3) see above Jan, Vitamin B 12 deficiency (ICD-10 - E53.8) 11/2020 vit b 12 537 at target Jan, Current use of insulin (ICD-10 - Z79.4) Jan, BMI 29.0-29.9,adult (ICD-10 - Z68.29) see above Jan, Encounter for immunization (ICD-10 - Z23) Patient is afebrile at this time; Patient denies current cold or flu symptoms; Patients denies previous reaction to flu vaccines; Patient denies allergies to chicken, eggs, or feathers; Influenza (Flu) Vaccine (Inactivated or Recombinant): What You Need to Know material was given to patient; Seen by: June Fernandez LPN Jan, Other Ximena was inquiring about an insulin pump. She is interested in the Tandem Tslim X2 with Control IQ. She asked about the tubing and if it is convenient when working. She wondered if her Dexcom linked with the system. She was educated on accurate carb counting and the importance of prebolusing. 30 miniutes was spent educating the patient by Roselia Purdy RN. [facility] Other 10-05-2021 Evaluation note* Encounter Date Diagnosis Assessment Notes Treatment Notes Treatment Clinical Notes Dec, Type 1 diabetes mellitus (ICD-10 - E10.9) Ximena was recently diagnosed with Type 1 diabetes. She was previously diagnosed with Type 2 diabetes but her C-Peptide was 0.9 which confirms type 1 diabetes. She had many questions and brought her Dexcom G6 sensors that she got from the Pharmacy. She was able to apply the new sensor with some direction from this educator and assistance from her Fiance. We discussed the difference between type 1 and type 2 diabetes. Autoimmune disease was explained and the patient understood. We discussed that she can eat whatever she wants, as long as she covers it with her ICR. We discussed the possibilty of an insulin pump in the future but we need to determine her ICR and ISF more accurately, and learn the basics without advanced technology before moving to a pump. She has not been eating any carbohydrates since her diagnosis. She stated I miss carbs . We discussed that she can and should have carbohydrates with her diet. She was advised how to count carbs and given a carb counting book called Carb Counting and Meal Planning . She was also set up with an insulin calculator, T1D1 on her phone. I set the ICR to 1:15, ISF to 1:50, and target BG 110, I turned on Negative correction factor and rounding to whole unit. The ja didn't work well on her phone but worked fine on her fiance's phone. Ximena said that she likes to drink wine but doesn't know if she can have it. I showed her the section of the book that addresses alcohol. We discussed that the liver releases less glucose when it is processing alcohol than it normally does and that drinking can be difficult. She stated that she will try 2 glasses of wine tonight. I advised her to not take any coverage insulin for it and watch her Dexcom to see how it effects her BG. Ximena and her fiance are going to come back for full Diabetes education after checking with insurance for coverage. 90 minutes was spent educating the patient by Roselia Purdy RN. [facility] Other 09-30-2021 Evaluation note* Encounter Date Diagnosis Assessment Notes Treatment Notes Treatment Clinical Notes Nov, Hyperlipidemia, unspecified hyperlipidemia type (ICD-10 - E78.5) [facility] Other 09-29-2021 Evaluation note* Encounter Date Diagnosis Assessment Notes Treatment Notes Treatment Clinical Notes Nov, Hyperlipidemia, unspecified hyperlipidemia type (ICD-10 - E78.5) 11/2020 ldl 212 trig 154- please start statin. Recheck labs Nov, Type 1 diabetes mellitus (ICD-10 - E10.9) 1. Uncontrolled, a Type 1 diabetes with A1c of >14% 12/18/2020 2. Blood glucose levels above target. 12/18/2020 nicholas 65 25.1, c-peptide 0.9 fasting glucose 262 indicates Type 1 DM. According to dexcom g6 download 12/14/2020-: Avg glucose 201. >250-19.6%, >180-62.1%, 70-180-37.9%, <70-37.9%, <70-0%, <54-0%. CV 26.9%. SD 54. Reviewed download with pt readings often above target postprandial. Will add bolus/corrective dosing ICR 1:15 ac tid; corrective scale 1:50 ac tid (hs if >200 half dose). Pt is very overwhelmed with recent diagnosis of type 1 DM and adding MDI dosing. She is scheduled to go back to work Friday, would recommend at least 2-3 more weeks off of work until she is more comfortable with MDI dosing. Will send referral to DSME. She will need to learn how to count carbs. She was encouraged to [employer] ja to assit with carb counting. Also recommend she look at [email or web address] website for more information on type 1 DM. We discussed different options of insulin pumps AID systems available with tube and non aid without tube. She would like to continue with dexcom g6. Will continue metformin for now with c-peptide of 0.9, will recheck c-peptide in 6 months- if declines may consider stopping metformin. 3. Patient is alert, oriented and receptive to making changes or counseling. Notes: Seen for 60 minutes for an assessment of current glucose pattern, changes in treatment plan, counseling and coordination of care related to diabetes, risks, and benefits of treatment, medications, side effects. Given handouts to reinforce concepts reviewed during counseling, see scanned notes. TOPICS REVIEWED: 1. Time was spent reviewing: a. Basic concepts of diabetes, progressive beta cell , concepts of basal/bolus/correct carol ann insulin requirements. Basal: The goal is fasting blood glucose of 90-130mg. IF fasting blood glucose starts to run under 100mg 3x's/ week, decrease dose by 10% b. Nutrition: Concepts of healthy diet, encouraged to decrease saturated fat in diet and increase non-starchy vegetables and fruits in diet. BMI: Pt. needs to select one small change to decrease caloric intake or increase physical activity to help decrease weight. c. Correct treatment of hypoglycemia, carry a glucose source at all times on your person, in vehicles, and at bedside. Can use glucose tablets/4, four ounces of pop or juice equal to 15 G of carbohydrate. Blood glucose should be 100 mg/dl or higher when driving. d. ADA glucose goals for age and medical complexity reviewed e. Patient questions addressed 2. Activity/exercise: Encouraged to start any form of physical activity. Start low level and increase slowly to a minimal goal of 150 minutes/week. Limit activity to what is allowed by other issues such as cardiac, pulmonary or orthopedic restrictions. 3. Standards of care: Reminded to have an annual dilated eye exam, A1C every 3 months, urine testing for microalbumin once/year, check feet daily and report any cuts or sores that do not appear to be healing. 4. Meter: Plan to check blood glucose: Please check blood glucose levels 1 time/day. Back to back meals reveal effectiveness of bolus dosing. 5. [facility]o dexcom g6. Contact office if any issues or concerns with patterns of hypoglycemia, hyperglycemia, or diabetes medication issues. 6. Prescriptions: Sent fiasp, tresiba, pen needles, test strips, dexcom g6/transmitters, metformin to [place]. Nov, Dietary counseling and surveillance (ICD-10 - Z71.3) see above Nov, Vitamin B 12 deficiency (ICD-10 - E53.8) 11/2020 vit b 12 537 at target Nov, Current use of insulin (ICD-10 - Z79.4) Nov, BMI 29.0-29.9,adult (ICD-10 - Z68.29) see above Nov, Other see above [facility] Other chief complaint+Reason for visit Narrative* Chief Complaint DM pump Reason for Visit Dietary counseling a nd surveillance Hyperlipidemia LDL goal <100 Hypoglycemia Insulin long-term use Insulin pump titration Type 1 diabetes mellitus [facility] Work Phone: Chial complaint+Reason for visit Narrative* Chief Complaint pump Reason for Visit BMI 27.0-27.9,adult Dietary counseling and surveillance Hyperlipidemia LDL goal <100 Hypoglycemia Insulin long-term use Insulin pump titration Type 1 diabetes mellitus [facility] Work Phone: Chief complaint+Reason for visit Narrative* Chief Complaint 3 month f/u-PUMP Reason for Visit BMI 27.0-27.9,adult Dietary counseling and surveillance Hyperlipidemia LDL goal <100 Hypoglycemia Insulin long-term use Insulin pump titration Type 1 diabetes mellitus [facility] Work Phone: Evaluation noteNo InformationN[facility] [employer] Other Evaluation noteNo assessment information available [facility] Work Phone: evaluation note* Diagnosis Onset Date Resolution Status Dietary counseling and surveillance acute Hyperlipidemia LDL goal <100 acute Hypoglycemia acute Insulin long-term use acute Insulin pump titration acute Type 1 diabetes mellitus [facility] Work Phone: evaluation note* Diagnosis Onset Date Resolution Status BMI 27.0-27.9,adult acute Dietary counseling and surveillance acute Hyperlipidemia LDL goal <100 acute Hypoglycemia acute Insulin long-term use acute Insulin pump titration acute Type 1 diabetes mellitus [facility] Work Phone: [employer] general Narrative - Reported* Type Description Date Medical History Hyperglycemia due to Type 2 Diab etes mellitus Medical History Fibroid, Uterine Medical History HPV in female Medical History Enlarged uterus Medical History Ankle impingement syndrome, righ t Medical History Leg DVT, Left Medical History Migraine, menstrual Medical History Yeast infection Medical History Fracture: coccyx Surgical History Laparoscopic tubal ligation wit h Flishle clips 11/01/2019 Surgical History Right ankle arthroscopy, tendon tranfer, stabilization 02/02/2019 Surgical History Biopsy of cervix [facility] [employer] Other history general Narrative - Reported* Type Description Date Medical History Hyperglycemia due DM Medical History Fibroid, Uterine Medical History HPV in female Medical History Enlarged uterus Medical History Ankle impingement syndrome, righ t Medical History Leg DVT, Left Medical History Migraine, menstrual Medical History Yeast infection Medical History Fracture: coccyx Surgical History Laparoscopic tubal ligation wit h Flishle clips 11/01/2019 Surgical History Right ankle arthroscopy, tendon tranfer, stabilization 02/02/2019 Surgical History Biopsy of cervix [facility] [employer] Other Reason for visit NarrativeTKM 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 [facility] [employer] Other Summary Purpose Family History Relationship Condition Age at Onset Recorded Date/T nitza father Rheumatoid arthritis Unknown Not Specified Heart disease Unknown Unknown Diabetes mellitus Unknown Relationship Condition Age at Onset Recorded Date/T nitza father Rheumatoid arthritis Unknown mother Heart disease Unknown Unknown Diabetes mellitus Unknown Advance Directives Advance Directive Response Recorded Date/ Time Advance Directives No April 22, 2017 9:52am Advance Directive Response Recorded Date/ Time Advance Directives No April 22, 2017 8:52am Chief Complaint and Reason for Visit Chief Complaint Obesity DM Dysuria Chief Complaint DM Chief Complaint Dm DM Additional Source Comments REASON FOR VISIT (unrecogniz ed section and content) WMNf/u removal dexcom g6, Ty pe 1 IDDM apt with [employer] DRAWER IN HAND, HAZARDOUS SUBSTANCES 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-C, BC-ADMTKM chol medsf/u new type 1 DM MDI dosingDM 1 month follow up, Type 1 IDDM dexcom g6 apt with [employer] DRAWER IN HAND, HAZARDOUS SUBSTANCES ENGINEER-C, BC-ADMInitial RD DMTKM Pump calculationTKM Pump QuestionsDM per NateMODERNA VACCINE BOOSTERlab resultsDM 3 month f/u, Type 1 IDDM dexcom g6 f/u apt with [employer] DRAWER IN HAND, HAZARDOUS SUBSTANCES ENGINEER-C, BC-ADMTKM Lab resultsWMN-- Type 1 diabetesWMN initialWMNDM 3 month f/u, Type 1 IDDM dexcom g6 f/u apt with [employer] DRAWER IN HAND, HAZARDOUS SUBSTANCES ENGINEER-C, BC-ADMDS Ozempic questionWMN Dr F/Ulab resultsDM 3 month f/u, Type 1 IDDM tandem control iq insulin pump with dexcom g6 f/u apt with [employer] DRAWER IN HAND, HAZARDOUS SUBSTANCES ENGINEER-C, BC-ADMWMN F/UTKM-Tandem pump issue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, WMN F/UDM/ WMDM 3 month follow up, Type 1 IDDM tandem control iq insulin pump with dexcom g6 f/u apt with [employer] DRAWER IN HAND, HAZARDOUS SUBSTANCES ENGINEER-C, BC-ADMTKM travel with pumpWMN F/U, 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, WMN F/UDS can she drink alcoholBG and exerciseWMN F/U, WMN F/U, 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, WMN F/UDS buPROPion prescriptionMedication-DepressionDYSURIA, URINARY URGENCYDM 3 month follow up, Type 1 IDDM tandem control iq insulin pump with dexcom g6 f/u apt with [employer] DRAWER IN HAND, HAZARDOUS SUBSTANCES ENGINEER-C, PR-MVOXQM-Nejigdw RxTKM problems with pumpDM 3 month follow up, Type 1 IDDM tandem control iq insulin pump with dexcom g6 f/u apt with [employer] DRAWER IN HAND, HAZARDOUS SUBSTANCES ENGINEER-C, BC-ADMpump update INFORMATION SOURCE (unrecogn ized section and content) DATE CREATED AUTHOR 01/10/2022 [facility] DATE CREATED AUTHOR AUTHOR'S ORGANIZ ATION 05/19/2023 [facility] DATE CREATED AUTHOR AUTHOR'S ORGANIZ ATION 12/18/2023 [facility] EPIC DATE CREATED AUTHOR AUTHOR'S ORGANIZ ATION 01/28/2024 [facility] Care Teams (unrecognized sec tion and content) Team Status: Active Member Role Status Dates Magy Shi MD Primary Care Provider Active Team Status: Active Member Role Status Dates Magy Shi MD Primary Care Provider Active Start: January 26, 2024 Katie Robledo APRN Attending Provider Active Start: January 26, 2024 Team Status: Inactive Member Role Status Dates Magy Shi MD Primary Care Provider Active Start: February 04, 2024 End: February 04, 2024 Katie Robledo APRN Attending Provider Active Start: February 04, 2024 End: February 04, 2024 Team Status: Active Member Role Status Dates Magy Shi MD Primary Care Provider Active Team Status: Inactive Member Role Status Dates Katie Robledo APRN Attending Provider Active Start: March 17, 2023 End: March 17, 2023 Team Status: Inactive Member Role Status Dates Katie Robledo APRN Attending Provider Active Start: April 30, 2023 End: April 30, 2023 Magy Shi MD Primary Care Provider Active Start: April 30, 2023 End: April 30, 2023 Team Status: Active Member Role Status Dates Tondra K Mapus , DRAWER IN HAND Attending Provider Active Magy Shi MD Primary Care Provider Active Team Status: Inactive Member Role Status Dates Magy Shi MD Primary Care Provider Active NISHA Moreno Attending Provider Active Team Status: Active Member Role Status Dates Magy Shi MD Primary Care Provider Active Tondra Vivek Robledo , DRAWER IN HAND Attending Provider Active Team Status: Inactive Member Role Status Dates Magy Shi MD Primary Care Provider Active Start: June 25, 2023 End: June 25, 2023 Tondra Vivek Robledo , DRAWER IN HAND Attending Provider Active Start: June 25, 2023 End: June 25, 2023 Team Status: Inactive Member Role Status Dates Magy Shi MD Primary Care Provider Active Start: October 29, 2023 End: October 29, 2023 Tona Vivek Robledo , DRAWER IN HAND Attending Provider Active Start: October 29, 2023 End: October 29, 2023 Team Status: Active Member Role Status Dates Magy Shi MD Primary Care Provider Active Start: January 26, 2024 Tona Vivek Robledo , DRAWER IN HAND Attending Provider Active Start: January 26, 2024 Team Status: Inactive Member Role Status Breonna Shi MD Primary Care Provider Active Start: February 04, 2024 End: February 04, 2024 Tona Vivek Robledo , DRAWER IN HAND Attending Provider Active Start: February 04, 2024 End: February 04, 2024 Goals (unrecognized section and content) Goals may be documented in a n alternate section FOR RECORDS PERTAINING TO PATIENTS WHO ARE OR HAVE BEEN ENROLLED IN A CHEMICAL DEPENDENCY/SUBSTANCEABUSE PROGRAM, SOME INFORMATION MAY BE OMITTED. This clinical summary was aggregated from multiple sources. Caution should be exercised in using it in the provision of clinical care. This summary normalizes information from multiple sources, and as a consequence, information in this document may materially change the coding, format and clinical context of patient data. In addition, data may be omitted in some cases. CLINICAL DECISIONS SHOULD BE BASED ON THE PRIMARY CLINICAL RECORDS. [employer] provides no warranty or guarantee of the accuracy or completeness of information in this document.
== END 2024-02-05 10:23 | disposition home or self-care (01) ==
LOC: MAMMO 10:23
PROVIDERS: PCP Family Medicine; Visit Provider Family Medicine
DX: Z12.31 Encounter for screening mammogram for malignant neoplasm of breast (principal); Z80.0 Family history of malignant neoplasm of digestive organs; Z80.8 Family history of malignant neoplasm of other organs or systems
CPT/HCPCS: 77063; 77067